=== PATIENT | female | born 1970 | race Caucasian/White ===

== ENCOUNTER 2022-09-22 06:00 | Day surgery (SDC) | payer OTHER, SELFPAY ==
[2022-09-19 12:02] VITALS: BMI 42.4
[2022-09-22] VITALS (8 sets, daily range): BP systolic 133–155; BP diastolic 78–94; PULSE 77–86; RESP 10–22; TEMP 35.9–36.7; O2SAT 94–98; BMI 42.4
--- NOTE | 2022-09-22 | DI.RAD.S_ITS ---
PROCEDURE: XR KUB INDICATIONS: Right renal calculi TECHNIQUE: One view of the abdomen acquired. COMPARISON: [facility], CT, CT KUB, 08/30/2022, 17:26. FINDINGS: Surgical changes and devices: Multiple surgical clips. L5-S1 pedicle screw fixation. Bowel: Bowel gas pattern is normal. Soft tissues: At least 2 small nonobstructing right kidney stones seen. (3 kidney stones are seen on recent CT KUB. The other stone may be obscured by bowel.) No suspicious abdominal calcifications. Visualized solid organ contours appear normal in size. Bones: No suspicious bony lesions. IMPRESSION: At least 2 nonobstructing right kidney stones appears similar. The 3rd small right kidney stone seen on recent CT is felt to be obscured by bowel. Dictated by: You Willoughby M.D. on 09/22/2022 at 8:23 Approved by: You Willoughby M.D. on 09/22/2022 at 8:27
--- NOTE | 2022-09-22 | DI.RAD.S_ITS ---
PROCEDURE: XR ABDOMEN 1V INDICATIONS: intra-op COMPARISON: [facility], CT, CT KUB, 08/30/2022, 17:26. [facility], CR, XR KUB, 09/22/2022, 6:43. FINDINGS: Intraoperative fluoroscopy images demonstrate placement of right ureteral stent. Partial below the addition of lower lumbar spine fusion. IMPRESSION: Placement of right ureteral stent. Dictated by: Elvi Cardona M.D. on 09/22/2022 at 15:32 Approved by: Elvi Cardona M.D. on 09/22/2022 at 15:33
--- NOTE | 2022-09-22 07:20 | PM.PREOP ---
Pre-operative Note COVID-19 Criteria for continued procedure: Expected advancement of disease process, Possibility delay results in more complex future surgery or treatment, Continuing or worsening of significant or severe pain, Delay expected to result in less-positive ultimate med/surg outcome and Non-surgical alternatives not available or appropriate per current SOC Interval Note History & Physical reviewed/Exam performed by Physician: Yes Changes to H&P: No
[2022-09-22] MEDS: VANCOMYCIN 1,000 MG/200 ML PIGGYBACK 200 MG IV (07:24)
[2022-09-22] MEDS: LACTATED RINGERS 1,000 ML 42 ML IV ×2 (07:26→09:26)
[2022-09-22] MEDS: GENTAMICIN 160 MG in SODIUM CHLORIDE 0.9% 100 ML 104 MG IV (07:47)
[2022-09-22] MEDS: IOPAMIDOL 50 ML VIAL INJ (08:15)
--- NOTE | 2022-09-22 08:38 | SUR.OPER ---
Lithotomy on padded OR bed, head on pillow, arms secured on padded arm boards at <90 degrees abduction. Legs secured in padded yellow fins stirrups.
[2022-09-22 09:01] LABS: Appearance Urine UA CLEAR; Bilirubin Urine UA NEGATIVE (NEGATIVE); Color Urine UA YELLOW; Glucose Urine UA NEGATIVE (Negative); Ketones Urine UA NEGATIVE (NEGATIVE); Leukocyte Esterase Urine UA NEGATIVE (NEGATIVE); Nitrite Urine UA NEGATIVE (Negative); Occult Blood Urine UA 3+ (Negative); Protein Urine UA TRACE (Negative); Specific Gravity Urine UA 1.025 (1.000-1.035); Urobilinogen Urine UA 0.2 E.U./dL (0.2); pH Urine UA 5.5 (4.5-8.0)
[2022-09-22 09:05] LABS: Bacteria Urine None Seen; Culture Indicated Urine Cult Not Indicated; RBC Urine 5-10/HPF (0-5/HPF); Squamous Epithelial Cell Urine 0-1 /HPF (0-5/HPF); WBC Urine None Seen (0-5/HPF)
[2022-09-22] MEDS: fentaNYL 100 MCG/2 ML INJ IV ×2 (09:20→09:29)
[2022-09-22] MEDS: ONDANSETRON 4 MG/2 ML INJ IV (09:22)
--- NOTE | 2022-09-22 09:25 | P.OP_ITS ---
Operative Date/Time/Diagnoses Date of procedure: 09/22/22 Time of procedure: 09:25 Pre-op diagnosis: 1. Right renal calculi. 2. Gross hematuria. 3. Chronic anticoagulation. 4. Right renal colic. Post-op diagnosis: same Procedure & Clinicians Procedure: 1. Cystoscopy/right ureteroscopic laser lithotripsy. 2. Cystoscopy/right retrograde pyelogram. 3. Cystoscopy/placement right ureteral stent (8 [place] by 22-32 cm multi- length). Same procedure as scheduled: Yes Indications: 1. Right renal calculi. 2. Gross hematuria. 3. Chronic anticoagulation. 4. Right renal colic. Click Yes if Unassisted: Yes Anesthesia Type: General Operative Notes Findings: Index spiculated calculi lying in right lower pole major calyx. Closure Type: not applicable Specimen(s): none sent Applied: other (Eight [place] by 22-32 cm multi-length stent.) Estimated Blood Loss (mL): 2 Blood products transfused: none Procedure in detail: Patient was positioned in supine administered general anesthesia. She was then repositioned in semi lithotomy in the lower abdomen, genitalia, and groin were prepped and draped in sterile fashion. Twenty-two [place] nichols endoscope was then passed the lower urinary tract with the findings as described above. A high-resolution 0.35 guidewire was then advanced in the working channel into the right ureteral orifice and then advanced proximally under direct fluoroscopic guidance. The panendoscope was then backloaded off hybrid guidewire. Now a dual-lumen ureteral access sheath was advanced over this wire under fluoroscopic guidance. A retrograde pyelogram was then performed to delineate intrarenal anatomy. A 2nd 0.35 hybrid guidewire was then advanced through the accessory lumen of the dual-lumen ureteral access sheath under fluoroscopic guidance. The dual-lumen ureteral access sheath was then backloaded off both wires. One wire was secured to the surgical drape. Over the other wire flexible ureteral scope was advanced under directed fluoroscopic guidance. A 100 micron laser fiber was not available, so a 200 micron laser fiber was selected. All operating room personnel and patient were fitted with laser safety eyewear. At maximal deflection of the scope 2 of the 3 stones were accessible and laser lithotripsy was commenced with excellent resultant fragmentation. The 3rd stone late at the very lower minor calyx. In order to reach the calculus the patient was positioned in extreme left airplane and Trendelenburg. The stone was then accessible and laser lithotripsy was then commenced again with excellent resultant fragmentation. The flexible ureteral scope was then removed. Nichols endoscope was then front loaded on the safety hybrid guidewire. An 8 [place] by 22-32 cm multi-length stent was then selected the hybrid guidewire under direct and fluoroscopic guidance. A RETRIEVAL LINE WAS LEFT ATTACHED. The bladder was then drained completely and nichols endoscope was removed. The patient was repositioned in supine, was awakened, then transferred to a rclimax for transport to PACU. Complications: none Post-operative Condition: stable Disposition: PACU Plan for aftercare: Discharge home.
[2022-09-22] MEDS: OXYCODONE/ACETAMINOPHEN 5/325 TABLET 1 TAB PO (09:38)
--- NOTE | 2022-09-22 09:54 | SUR.PHASEI ---
Patient expressed desire to void on the toilet. Awake and alert. Discharged from PACU.
--- NOTE | 2022-09-22 10:36 | SUR.PHASEII ---
1030 Pt discharged to home. Pt to restart Xarelto /Lovenox per Dr Porras instructions.
[2022-09-27 11:19] LABS: Stone Analysis Source NOT PROVIDED
[2022-09-27 11:47] LABS: Ca oxalate dihydrate 50 % (.); Hydroxyapatite 50 % (.); Size <1 mm (.)
== END 2022-09-22 10:30 | disposition home or self-care (01) ==
PROVIDERS: PCP Physician Assistant; Referring Provider Specialist; Visit Provider Specialist
PROC: 0TF68ZZ Fragmentation in Right Ureter, Via Natural or Artificial Opening Endoscopic (ICD-10-PCS; CPT 52353; principal; 2022-09-22 07:45)
DX: N20.0 Calculus of kidney (principal)
CPT/HCPCS: 52356; 74018; 76000; 81001; 82365; C1771; J1885; J2405; J2704; J3010

== ENCOUNTER → 2022-09-29 10:53 | Outpatient (CLI) | payer OTHER, SELFPAY ==
--- NOTE | 2022-09-29 10:54 | DI.RAD.S_ITS ---
PROCEDURE: XR KUB INDICATIONS: Uretal stent TECHNIQUE: One view of the abdomen acquired. COMPARISON: [facility], CR, XR KUB, 09/22/2022, 6:43. FINDINGS: Surgical changes and devices: Right double-J ureteral stent, lumbosacral fusion hardware, abdominal and pelvic clips. Bowel: Bowel gas pattern is normal. Soft tissues: No suspicious abdominal calcifications. Visualized solid organ contours appear normal in size. Bones: No suspicious bony lesions. IMPRESSION: Expected location double-J ureteral stent. No evidence acute abdominal process. Dictated by: Kishor Garibay M.D. on 09/29/2022 at 11:51 Approved by: Kishor Garibay M.D. on 09/29/2022 at 11:52
== END ==
PROVIDERS: PCP Physician Assistant; Referring Provider Specialist; Visit Provider Specialist
DX: N20.0 Calculus of kidney (principal); Z96.0 Presence of urogenital implants; Z98.1 Arthrodesis status; Z87.442 Personal history of urinary calculi
CPT/HCPCS: 74018

== ENCOUNTER → 2022-10-02 09:13 | Day surgery (SDC) | payer OTHER, SELFPAY ==
[2022-10-02 08:08] VITALS: BMI 42.4
[2022-10-02 10:01] VITALS: BMI 42.4
--- NOTE | 2022-10-02 10:04 | PM.PREOP ---
Pre-operative Note COVID-19 Criteria for continued procedure: Possibility delay results in more complex future surgery or treatment, Continuing or worsening of significant or severe pain, Delay expected to result in less-positive ultimate med/surg outcome and Non-surgical alternatives not available or appropriate per current SOC Interval Note History & Physical reviewed/Exam performed by Physician: Yes Changes to H&P: No H&P completed within 30 days and has changed as indicated here:: KUB 09/29/2022, demonstrates appropriately positioned right ureteral stent.
[2022-10-02 10:09] VITALS: BP 145/83; PULSE 96; RESP 18; TEMP 37.8; O2SAT 97
--- NOTE | 2022-10-02 10:14 | SUR.OPER ---
Lithotomy on padded OR bed, head on pillow, arms secured on padded arm boards at <90 degrees abduction. Legs secured in padded yellow fins stirrups.
[2022-10-02] MEDS: LACTATED RINGERS 1,000 ML 42 ML IV (10:15)
--- NOTE | 2022-10-02 10:21 | PM.OP.1 ---
Operative Date/Time/Diagnoses Date of procedure: 10/02/22 Time of procedure: 10:45 Pre-op diagnosis: 1. Retained right ureteral stent. 2. History of recurrent nephrolithiasis. Post-op diagnosis: same Procedure & Clinicians Procedure: 1. Removal of right retained ureteral stent under sedation. Same procedure as scheduled: Yes Indications: 1. Retained right ureteral stent. Surgeon: Manuel Porras Click Yes if Unassisted: Yes Anesthesia Type: Sedation Operative Notes Findings: 1. Perineal and genital atrophic hair loss. 2. Normal appearing urethral meatus with retrieval line exiting unchanged verses previous exam. Closure Type: not applicable Specimen(s): other (Catheterized urine for urinalysis and reflex culture.) Estimated Blood Loss (mL): 0 Blood products transfused: none Procedure in detail: The patient was positioned supine and was provided conscious sedation. She was then repositioned in semi lithotomy and the lower abdomen, genitalia, and groin were then prepped and draped in sterile fashion. The retained right ureteral stent was removed uneventfully via the retrieval line. A straight red rubber catheter was then passed the lower urinary tract and a sample obtained for submission to laboratory for reflex culture. The patient was then repositioned in supine, was then transferred to [facility] and transferred to recovery in stable condition. Complications: none Post-operative Condition: stable Disposition: PACU Plan for aftercare: Discharge home.
--- NOTE | 2022-10-02 10:22 | PM.HP.1 ---
History of Present Illness History of Present Illness Date Patient Seen: 10/02/22 Time Patient Seen: 10:00 Chief complaint: Cysto Narrative: The patient is a 52-year-old woman with history of recurrent right nephrolithiasis presenting today for removal retained right ureteral stent. She is status post uncomplicated right intrarenal laser lithotripsy of 3 stones and placement of right ureteral stent on 09/22/2022. A retrieval line was left attached. Attempts to remove the stent via they retrieval line in office on 09/29/2022, were unsuccessful due to patient's intolerance and lack of ability to cooperatively relax her pelvic floor. KUB 09/29/2022 demonstrates intact positioning of the right ureteral stent. Patient History Medical History (Updated 10/02/22 @ 10:25 by Manuel Porras MD) Bipolar disorder Calculus of right kidney Chronic low back pain Diabetes Disc displacement, lumbar DVT (deep venous thrombosis) Factor V Leiden Fibromyositis GERD (gastroesophageal reflux disease) Gross hematuria History of depression History of kidney stones History of nephrolithiasis HLD (hyperlipidemia) HTN (hypertension) Hx of migraine headaches Hx of nephrolithotomy with removal of calculi IBS (irritable bowel syndrome) Migraines Sepsis (12/2021) Surgical History (Updated 10/02/22 @ 08:14 by Kelly Meza RN) History of back surgery History of hysterectomy (1997) History of lumbar fusion (2007) Hx of cervical discectomy (04/13/17) Hx of cholecystectomy Hx of cystoscopy (12/27/21) Hx of cystoscopy (09/22/22) Hx of laser iridotomy Hx of neck surgery Hx of tonsillectomy 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) Family & Social History Family History Mother Cancer Hypertension Migraines Urinary tract infection Kidney stones Brother Cancer Hypertension Inflammatory bowel disease Social History: household members spouse Tobacco & Substance use: Smoking Status Never smoker alcohol intake never Substance Use Type does not use Meds Home Medications and Allergies Home Medications Medication Instructions Recorded Confirmed Type lamotrigine 100 mg tablet 100 mg PO BID ##0 04/12/17 10/02/22 History (Lamictal) cholecalciferol (vitamin D3) 50 50 mcg PO DAILY 08/31/22 10/02/22 History mcg (2,000 unit) capsule estradiol 0.01% (0.1 mg/gram) 1 g vaginal 2XW 08/31/22 10/02/22 History vaginal cream furosemide 20 mg tablet 20 mg PO DAILY 08/31/22 10/02/22 History multivitamin 1 tab PO DAILY 08/31/22 10/02/22 History rivaroxaban 2.5 mg tablet (Xarelto) 2.5 mg PO BID 08/31/22 10/02/22 History sumatriptan succinate 25 mg tablet 25 mg PO ONCE 08/31/22 10/02/22 History enoxaparin 40 mg/0.4 mL 40 mg (0.4 mL) SUBCUT Q12H #4 mL 09/07/22 10/02/22 Rx subcutaneous syringe (Lovenox) oxycodone 5 mg tablet 5 mg PO Q4H PRN pain #20 tabs 09/07/22 10/02/22 Rx bupropion HCl 150 mg 24 hr tablet, 150 mg PO DAILY 09/22/22 10/02/22 History extended release (Wellbutrin XL) oxycodone 5 mg tablet 5 mg PO Q4H PRN pain #20 tabs 09/25/22 10/02/22 Rx Allergies Allergy/AdvReac Type Severity Reaction Status Date / Time amoxicillin [AMOXICILLIN] Allergy Severe HIVES Verified 10/02/22 09:54 Sulfa (Sulfonamide Allergy Severe HIVES Verified 10/02/22 09:54 Antibiotics) [SULFA (SULFONAMIDE ANTIBIOTICS)] Review of Systems Review of Systems ROS: Yes All systems reviewed with the patient and are negative except as otherwise documented Exam Vital Signs (past 8 hours): - 10/02/22 10:09 Temperature 100.1 F H Pulse Rate 96 H Respiratory Rate 18 Blood Pressure 145/83 H Pulse Oximetry 97 Oxygen Delivery Method Room Air Oxygen Delivery Method Room Air Narrative Exam Narrative: She is a well-developed, over nourished female in no current distress. Head/neck-sclera clear pupils are equal and round bilaterally. Chest-equal and unlabored expansion bilaterally. Heart-normal sinus rhythm. Assessment & Plan Assessment and plan (1) Retained ureteral stent: Status: Acute (2) History of nephrolithiasis: Status: Acute Plan 1. To operating room today for retained right ureteral stent removal via retrieval line or endoscopically under sedation. Time Spent With Patient Critical Care time: I spent a total of [] minutes of critical care time on this patient's care today; this time is exclusive of procedural time.
[2022-10-02 10:52] VITALS: BP 125/62; PULSE 90; RESP 16; TEMP 36.1; O2SAT 95
[2022-10-02 10:57] VITALS: BP 113/66; PULSE 92; RESP 16; TEMP 36.9; O2SAT 94
[2022-10-02 11:08] VITALS: BP 122/72; PULSE 60; RESP 16; TEMP 36.3; O2SAT 98
[2022-10-02 11:16] LABS: Appearance Urine UA CLOUDY; Bilirubin Urine UA 1+ (NEGATIVE); Color Urine UA BROWN; Glucose Urine UA NEGATIVE (Negative); Ketones Urine UA NEGATIVE (NEGATIVE); Leukocyte Esterase Urine UA 2+ (NEGATIVE); Nitrite Urine UA POSITIVE (Negative); Occult Blood Urine UA 3+ (Negative); Protein Urine UA 2+ (Negative); Specific Gravity Urine UA 1.025 (1.000-1.035)
[2022-10-02 11:36] LABS: Ictotest Urine Negative (Negative); RBC Urine >100/HPF (0-5/HPF); WBC Urine >100/HPF (0-5/HPF)
[2022-10-02 11:37] LABS: Bacteria Urine Many (>30); Culture Indicated Urine Specimen Cultured
== END | disposition home or self-care (01) ==
PROVIDERS: PCP Physician Assistant; Referring Provider Specialist; Visit Provider Specialist
PROC: 0TJB8ZZ Inspection of Bladder, Via Natural or Artificial Opening Endoscopic (ICD-10-PCS; CPT 52000; principal; 2022-10-02 10:30)
DX: Z46.6 Encounter for fitting and adjustment of urinary device (principal)
CPT/HCPCS: 50386; 81001; 87077; 87086; 87186; J0744; J1100; J2250; J2405; J2704; J3010

== ENCOUNTER 2022-10-06 09:39 | Emergency (ER) | payer OTHER, SELFPAY ==
[2022-10-06 09:48] VITALS: BP 128/58; PULSE 90; RESP 16; TEMP 37.3; O2SAT 94; BMI 44.2
[2022-10-06 10:27] LABS: RBC Urine 10-30/HPF (0-5/HPF)
[2022-10-06 10:28] LABS: Amorphous Sediment Urine 1+; Bacteria Urine Moderate (10-30); Culture Indicated Urine Specimen Cultured; Hyaline Casts Urine 0-1/LPF; WBC Urine 30-100/HPF (0-5/HPF)
--- NOTE | 2022-10-06 11:04 | ED.FEMALEGU ---
HPI - Female Genitourinary General Chief complaint: Urogenital-Female Stated complaint: sent by Urology infection not getting better Time Seen by Provider: 10/06/22 11:01 Source: patient Mode of arrival: Wheelchair History of Present Illness HPI Narrative: Patient is a 52-year-old female history of nephrolithiasis with ureteral stents along with UTI and sepsis. Presents today with painful frequent urination. She had a urethral stent removed 5 days ago. She had to undergo removal with sedation surgically. She was given 1 dose of IV antibiotics due to her past history. Previously she is had stents removed in gone in to sepsis. She does not have any fever she is some mild flank pain no abdominal pain nausea vomiting. She is no chest pain or other symptoms. Related Data Home Medications Medication Instructions Recorded Confirmed lamotrigine 100 mg tablet 100 mg PO BID ##0 04/12/17 10/02/22 (Lamictal) cholecalciferol (vitamin D3) 50 50 mcg PO DAILY 08/31/22 10/02/22 mcg (2,000 unit) capsule estradiol 0.01% (0.1 mg/gram) 1 g vaginal 2XW 08/31/22 10/02/22 vaginal cream furosemide 20 mg tablet 20 mg PO DAILY 08/31/22 10/02/22 multivitamin 1 tab PO DAILY 08/31/22 10/02/22 rivaroxaban 2.5 mg tablet (Xarelto) 2.5 mg PO BID 08/31/22 10/02/22 sumatriptan succinate 25 mg tablet 25 mg PO ONCE 08/31/22 10/02/22 bupropion HCl 150 mg 24 hr tablet, 150 mg PO DAILY 09/22/22 10/02/22 extended release (Wellbutrin XL) Previous Rx's Medication Instructions Recorded enoxaparin 40 mg/0.4 mL 40 mg (0.4 mL) SUBCUT Q12H #4 mL 09/07/22 subcutaneous syringe (Lovenox) oxycodone 5 mg tablet 5 mg PO Q4H PRN pain #20 tabs 09/07/22 oxycodone 5 mg tablet 5 mg PO Q4H PRN pain #20 tabs 09/25/22 cefdinir 300 mg capsule 300 mg PO BID #20 caps 10/06/22 Allergies Allergy/AdvReac Type Severity Reaction Status Date / Time amoxicillin [AMOXICILLIN] Allergy Severe HIVES Verified 10/06/22 09:48 Sulfa (Sulfonamide Allergy Severe HIVES Verified 10/06/22 09:48 Antibiotics) [SULFA (SULFONAMIDE ANTIBIOTICS)] Review of Systems Review of Systems ROS Unobtainable: All systems reviewed & are unremarkable except as noted in HPI and below Patient History Medical History Bipolar disorder Calculus of right kidney Chronic low back pain Diabetes Disc displacement, lumbar DVT (deep venous thrombosis) Factor V Leiden Fibromyositis GERD (gastroesophageal reflux disease) Gross hematuria History of depression History of kidney stones History of nephrolithiasis HLD (hyperlipidemia) HTN (hypertension) Hx of migraine headaches Hx of nephrolithotomy with removal of calculi IBS (irritable bowel syndrome) Migraines Sepsis (12/2021) Surgical History History of back surgery History of hysterectomy (1997) History of lumbar fusion (2007) Hx of cervical discectomy (04/13/17) Hx of cholecystectomy Hx of cystoscopy (12/27/21) Hx of cystoscopy (09/22/22) Hx of laser iridotomy Hx of neck surgery Hx of tonsillectomy 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) Family History Mother Cancer Hypertension Migraines Urinary tract infection Kidney stones Brother Cancer Hypertension Inflammatory bowel disease alcohol intake frequency: holidays/special occasions only Substance Use Type: does not use Exam Initial Vital Signs Initial Vital Signs: Vital Signs Temperature 99.1 F 10/06/22 09:48 Pulse Rate 90 10/06/22 09:48 Respiratory Rate 16 10/06/22 09:48 Blood Pressure 128/58 L 10/06/22 09:48 Pulse Oximetry 94 10/06/22 09:48 Oxygen Delivery Method Room Air 10/06/22 09:48 GENERAL: Alert pleasant 52-year-old female HEENT: Head atraumatic,EOMI, pupils reactive, face symmetric, moist mucous membranes CARDIOVASCULAR: Regular rate and rhythm without murmurs, rubs or gallops. RESPIRATORY: Breath sounds equal bilaterally, no wheezes rales or rhonchi. ABDOMEN: Soft, nontender. Normoactive bowel sounds all 4 quadrants. No guarding or rebound. : No CVA tenderness EXTREMITIES: Normal range of motion, no clubbing or edema. Neurovascularly intact NEUROLOGICAL: Alert and oriented x4.Normal gait and speech. SKIN: Warm, dry, no laceration, no petechiae, no rashes or lesions. Course Orders Ordered: Discontinued Medications Ceftriaxone Sodium 1,000 mg/ (Sodium Chloride) 100 mls @ 200 mls/hr IV NOW ONE Stop: 10/06/22 12:39 Last Admin: 10/06/22 13:16 Dose: 200 mls/hr Documented By: SB Vital Signs Vital signs: Vital Signs - 8 hr 10/06/22 09:48 Temperature 99.1 F Pulse Rate 90 Respiratory Rate 16 Blood Pressure 128/58 L Pulse Oximetry 94 Oxygen Delivery Method Room Air MDM - Female Genitourinary Lab Data 10/06/22 11:55 10/06/22 11:55 Labs: Lab Results 10/06/22 10/06/22 10/06/22 Range/Units 10:00 11:55 11:55 WBC 10.4 (4.5-11.0) X10^3/uL RBC 3.39 L (4.0-5.2) X10^6/uL Hgb 9.9 L (12.0-16.0) g/dL Hct 29.8 L (36-46) % MCV 87.9 (80-100) fL MCH 29.3 (26-34) PG MCHC 33.3 (30-36) % RDW 14.6 (11.6-14.8) % Plt Count 313 (150-400) X10^3/uL Neut % (Auto) 70.9 (50-75) % Lymph % (Auto) 15.3 L (25-40) % Maury % (Auto) 12.3 (3-14) % Eos % (Auto) 0.9 L (2-4) % Baso % (Auto) 0.6 (0-2) % Neut # (Auto) 7300 H (7967-6520) /uL Lymph # (Auto) 1600 (4573-7053) /uL Maury # (Auto) 1300 H (0-900) /uL Eos # (Auto) 100 (0-450) /uL Baso # (Auto) 100 (0-100) /uL Sodium 137 (137-145) mmol/L Potassium 3.1 L (3.4-5.1) mmol/L Chloride 102 (98-107) mmol/L Carbon Dioxide 25 (22-32) mmol/L BUN 17 (7-17) mg/dL Creatinine 0.92 (0.52-1.04) mg/dL Estimated GFR > 60 (>60) mL/min BUN/Creatinine Ratio 18.5 (6-22) Glucose 108 H (70-100) mg/dL Lactate (0.7-2.1) mmol/L Calcium 8.8 (8.4-10.2) mg/dL Total Bilirubin 0.4 (0.2-1.3) mg/dL AST 28 (14-36) IU/L ALT 22 (<35) IU/L Alkaline Phosphatase 118 (38-126) U/L Total Protein 7.8 (6.3-8.2) g/dL Albumin 3.7 (3.5-5.0) g/dL Globulin 4.1 (1.7-4.1) g/dL Albumin/Globulin Ratio 0.9 L (1.0-2.8) Procalcitonin (<0.5) ng/mL Urine RBC 10-30/hpf H (0-5/HPF) Urine WBC 30-100/hpf H (0-5/HPF) Amorphous Sediment 1+ Urine Bacteria Moderate (10-30) H (None) Hyaline Casts 0-1/lpf (None) Ur Culture Indicated? Specimen cultured A. baumannii (PCR) (Not Detect) Dulce albicans (PCR) (Not Detect) C. glabrata (PCR) (Not Detect) C. krusei (PCR) (Not Detect) C. parapsilosis (PCR) (Not Detect) C. tropicalis (PCR) (Not Detect) Enterobacteriac sp PCR (Not Detect) E. cloacae complex PCR (Not Detect) Enterococcus sp PCR (Not Detect) E. coli (PCR) (Not Detect) H. influenzae (PCR) (Not Detect) Klebsiella oxytoca PCR (Not Detect) Klebsiella pneumoniae (Not Detect) List. monocytogenes PCR (Not Detect) N. meningitidis (PCR) (Not Detect) Proteus species (PCR) (Not Detect) Serratia marcescens PCR (Not Detect) Staphylococcus sp PCR (Not Detect) Staph aureus (PCR) (Not Detect) mecA-Methicil Res Gene Streptococcus sp PCR (Not Detect) Group A Strep (PCR) (Not Detect) Strep agalactiae (PCR) (Not Detect) Strep pneumoniae (PCR) (Not Detect) P. aeruginosa (PCR) (Not Detect) KPC-Carbap Res Gene PCR (Not Detect) 10/06/22 10/06/22 10/07/22 Range/Units 11:55 11:55 02:02 WBC (4.5-11.0) X10^3/uL RBC (4.0-5.2) X10^6/uL Hgb (12.0-16.0) g/dL Hct (36-46) % MCV (80-100) fL MCH (26-34) PG MCHC (30-36) % RDW (11.6-14.8) % Plt Count (150-400) X10^3/uL Neut % (Auto) (50-75) % Lymph % (Auto) (25-40) % Maury % (Auto) (3-14) % Eos % (Auto) (2-4) % Baso % (Auto) (0-2) % Neut # (Auto) (1820-0968) /uL Lymph # (Auto) (0501-2555) /uL Maury # (Auto) (0-900) /uL Eos # (Auto) (0-450) /uL Baso # (Auto) (0-100) /uL Sodium (137-145) mmol/L Potassium (3.4-5.1) mmol/L Chloride (98-107) mmol/L Carbon Dioxide (22-32) mmol/L BUN (7-17) mg/dL Creatinine (0.52-1.04) mg/dL Estimated GFR (>60) mL/min BUN/Creatinine Ratio (6-22) Glucose (70-100) mg/dL Lactate 0.9 (0.7-2.1) mmol/L Calcium (8.4-10.2) mg/dL Total Bilirubin (0.2-1.3) mg/dL AST (14-36) IU/L ALT (<35) IU/L Alkaline Phosphatase (38-126) U/L Total Protein (6.3-8.2) g/dL Albumin (3.5-5.0) g/dL Globulin (1.7-4.1) g/dL Albumin/Globulin Ratio (1.0-2.8) Procalcitonin 82.7 H (<0.5) ng/mL Urine RBC (0-5/HPF) Urine WBC (0-5/HPF) Amorphous Sediment Urine Bacteria (None) Hyaline Casts (None) Ur Culture Indicated? A. baumannii (PCR) Not detected (Not Detect) Dulce albicans (PCR) Not detected (Not Detect) C. glabrata (PCR) Not detected (Not Detect) C. krusei (PCR) Not detected (Not Detect) C. parapsilosis (PCR) Not detected (Not Detect) C. tropicalis (PCR) Not detected (Not Detect) Enterobacteriac sp PCR Detected H (Not Detect) E. cloacae complex PCR Not detected (Not Detect) Enterococcus sp PCR Not detected (Not Detect) E. coli (PCR) Detected H (Not Detect) H. influenzae (PCR) Not detected (Not Detect) Klebsiella oxytoca PCR Not detected (Not Detect) Klebsiella pneumoniae Not detected (Not Detect) List. monocytogenes PCR Not detected (Not Detect) N. meningitidis (PCR) Not detected (Not Detect) Proteus species (PCR) Not detected (Not Detect) Serratia marcescens PCR Not detected (Not Detect) Staphylococcus sp PCR Not detected (Not Detect) Staph aureus (PCR) Not detected (Not Detect) mecA-Methicil Res Gene Not Reportable Streptococcus sp PCR Not detected (Not Detect) Group A Strep (PCR) Not detected (Not Detect) Strep agalactiae (PCR) Not detected (Not Detect) Strep pneumoniae (PCR) Not detected (Not Detect) P. aeruginosa (PCR) Not detected (Not Detect) KPC-Carbap Res Gene PCR Not detected (Not Detect) Urine Dip Bedside Urine Glucose Negative Bedside Urine Bilirubin - Negative Bedside Urine Ketone - Negative Urine Specific [place] 1.015 Bedside Urine Occult Blood +++ Bedside Urine pH 6.0 Bedside Urine Protein +/- 15 Bedside Urine Urobilinogen - Negative Bedside Urine Nitrite - Negative Bedside Urine Leukocytes + 70 Esterase MDM Narrative Medical decision making narrative: Patient is a 52-year-old female history of previous sepsis recent urologic procedure presents today with frequent urination. Leukocytes in her urine. She is afebrile normotensive without tachycardia no significant leukocytosis. Lactic acid is within normal limits however procalcitonin is significantly elevated at 82.7. Blood cultures are pending. She is given 1 dose of Rocephin here in the ED without any sort of interaction or allergic reaction. She does develop hives amoxicillin. He overall feels well and like to home. At this time I think this is reasonable no obvious signs sepsis. She is given a prescription. I did discuss with Dr. Porras he reports that she does have a history of sepsis especially after ureteral stents, he was a little worried about her but is updated on her results and agrees with an outpatient plan currently. Discharge Plan Departure Patient Disposition: Home Clinical Impression: UTI (urinary tract infection) Instructions: DI for Urinary Tract Infection (UTI) Activity Restrictions/Additional Instructions: *You have been diagnosed with UTI *What to do: At this time you do have a bladder infection probably from her procedure. Increase fluids. We may call you in the next 2-3 days if your blood cultures are. *Continue to take medications as directed Cefdinir 300 mg twice a day-> SENT TO [facility] *Follow up with your primary care provider in 2-3 days or call [phone] *Return to ER if you should have increasing pain fever confusion or any new, worsening or concerning symptoms Prescriptions: New cefdinir 300 mg capsule 300 mg PO BID Qty: 20 0RF No Action lamotrigine [Lamictal] 100 MG tablet 100 mg PO BID Qty: 0 enoxaparin [Lovenox] 40 mg/0.4 mL syringe 40 mg SUBCUT Q12H Qty: 4 0RF Rx Instructions: Administer every 12 hours beginning morning 09/18/2022 through morning 09/21/2022. oxycodone 5 mg tablet 5 mg PO Q4H PRN (Reason: pain) Qty: 20 0RF oxycodone 5 mg tablet 5 mg PO Q4H PRN (Reason: pain) Qty: 20 0RF bupropion HCl [Wellbutrin XL] 150 mg Tablet Extended Release 24 Hr 150 mg PO DAILY furosemide 20 mg tablet 20 mg PO DAILY sumatriptan succinate 25 mg tablet 25 mg PO ONCE cholecalciferol (vitamin D3) 50 mcg (2,000 unit) capsule 50 mcg PO DAILY estradiol 0.01 % (0.1 mg/gram) cream 1 g vaginal 2XW Xarelto 2.5 mg tablet 2.5 mg PO BID multivitamin Tablet 1 tab PO DAILY Referrals: Mary Cannon PA-C [Primary Care Provider] - Manuel Porras MD [Physician] - Stand Alone Forms: Patient Portal/API
[2022-10-06 12:01] LABS: Add Manual Diff / Slide Review NO; Basophils Absolute Auto 100 /uL (0-100); Basophils Percent Auto 0.6 % (0-2); Eosinophils Absolute Auto 100 /uL (0-450); Eosinophils Percent Auto 0.9 % (2-4); Hematocrit 29.8 % (36-46); Hemoglobin 9.9 g/dL (12.0-16.0); Lymphocytes Absolute Auto 1600 /uL (1100-4500); Lymphocytes Percent Auto 15.3 % (25-40); Mean Corpuscular HGB Conc 33.3 % (30-36); Mean Corpuscular Hemoglobin 29.3 PG (26-34); Mean Corpuscular Volume 87.9 fL (80-100); Monocytes Absolute Auto 1300 /uL (0-900); Monocytes Percent Auto 12.3 % (3-14); Neutrophils Absolute Auto 7300 /uL (1500-7000); Neutrophils Percent Auto 70.9 % (50-75); Platelet Count 313 X10^3/uL (150-400); Red Blood Cell Count 3.39 X10^6/uL (4.0-5.2); Red Cell Distribution Width 14.6 % (11.6-14.8); White Blood Cell Count 10.4 X10^3/uL (4.5-11.0)
[2022-10-06 12:14] LABS: Lactate (Lactic Acid) 0.9 mmol/L (0.7-2.1)
[2022-10-06 12:16] LABS: Alanine Aminotransferase 22 IU/L (<35); Albumin 3.7 g/dL (3.5-5.0); Albumin Globulin Ratio 0.9 (1.0-2.8); Alkaline Phosphatase 118 U/L (38-126); Aspartate Aminotransferase 28 IU/L (14-36); BUN Creatinine Ratio 18.5 (6-22); Bilirubin Total 0.4 mg/dL (0.2-1.3); Blood Urea Nitrogen 17 mg/dL (7-17); Calcium 8.8 mg/dL (8.4-10.2); Carbon Dioxide 25 mmol/L (22-32); Chloride 102 mmol/L (98-107); Estimated Glomerular Filt Rate > 60 mL/min (>60); Globulin 4.1 g/dL (1.7-4.1); Glucose 108 mg/dL (70-100); HEMOLYSIS < 15 (0-50); Potassium 3.1 mmol/L (3.4-5.1); Sodium 137 mmol/L (137-145); Total Protein 7.8 g/dL (6.3-8.2)
[2022-10-06 12:33] LABS: Procalcitonin 82.7 ng/mL (<0.5)
[2022-10-06] MEDS: cefTRIAXone 1,000 MG in SODIUM CHLORIDE 0.9% 100 ML 200 MG IV (13:16)
[2022-10-06 14:34] VITALS: BP 142/76; PULSE 75; O2SAT 97
[2022-10-07 03:25] LABS: Acinetobacter baumannii Not Detected (Not Detect); Enterobacteriaceae species Detected (Not Detect); Enterococcus species Not Detected (Not Detect); KPC (carbapenem-resist gene) Not Detected (Not Detect); Listeria monocytogenes Not Detected (Not Detect); Staphylococcus species Not Detected (Not Detect); Streptococcus agalactiae (Gr B Not Detected (Not Detect); Streptococcus pneumonia Not Detected (Not Detect); Streptococcus pyogenes (Gr A) Not Detected (Not Detect); Streptococcus species Not Detected (Not Detect)
[2022-10-07 03:26] LABS: Candida albicans Not Detected (Not Detect); Candida glabrata Not Detected (Not Detect); Candida krusei Not Detected (Not Detect); Candida parapsilosis Not Detected (Not Detect); Candida tropicalis Not Detected (Not Detect); E. coli Detected (Not Detect); Enterobacter cloacae complex Not Detected (Not Detect); Haemophilus influenzae Not Detected (Not Detect); Neisseria meningitidis Not Detected (Not Detect); Proteus species Not Detected (Not Detect); Pseudomonas aeruginosa Not Detected (Not Detect); Serratia marcescens Not Detected (Not Detect)
== END 2022-10-06 14:37 | disposition home or self-care (01) ==
PROVIDERS: Emergency Provider Emergency Medicine; PCP Physician Assistant
DX: N39.0 Urinary tract infection, site not specified (principal); B96.20 Unspecified Escherichia coli [E. coli] as the cause of diseases classified elsewhere
CPT/HCPCS: 36415; 80053; 81003; 81015; 83605; 84145; 85025; 87040; 87077; 87086; 87150; 87186; 96365; 99284; J0696

== ENCOUNTER 2022-10-08 07:06 | Emergency (ER) | payer OTHER, SELFPAY ==
[2022-10-08 07:30] VITALS: BP 133/60; PULSE 73; PULSE 77; RESP 18; RESP 20; TEMP 37.2; O2SAT 96; BMI 43.9
[2022-10-08 07:31] VITALS: BP 133/60; PULSE 74; RESP 19; O2SAT 96
[2022-10-08 07:54] LABS: Appearance Urine UA CLEAR; Bilirubin Urine UA NEGATIVE (NEGATIVE); Color Urine UA YELLOW; Glucose Urine UA NEGATIVE (Negative); Ketones Urine UA NEGATIVE (NEGATIVE); Leukocyte Esterase Urine UA 1+ (NEGATIVE); Nitrite Urine UA NEGATIVE (Negative); Occult Blood Urine UA NEGATIVE (Negative); Protein Urine UA 1+ (Negative); Specific Gravity Urine UA 1.015 (1.000-1.035); Urobilinogen Urine UA 0.2 E.U./dL (0.2)
[2022-10-08 07:57] LABS: pH Urine UA 6.5 (4.5-8.0)
[2022-10-08 08:00] VITALS: BP 130/94; PULSE 68; RESP 20; O2SAT 96
[2022-10-08 08:00] LABS: Amorphous Sediment Urine 1+; Bacteria Urine Moderate (10-30); Culture Indicated Urine Specimen Cultured; RBC Urine None Seen (0-5/HPF); Squamous Epithelial Cell Urine 5-10 /HPF (0-5/HPF); WBC Urine 30-100/HPF (0-5/HPF)
[2022-10-08 08:07] LABS: Add Manual Diff / Slide Review NO; Basophils Absolute Auto 0 /uL (0-100); Basophils Percent Auto 0.4 % (0-2); Eosinophils Absolute Auto 100 /uL (0-450); Eosinophils Percent Auto 1.4 % (2-4); Hematocrit 31.5 % (36-46); Hemoglobin 10.3 g/dL (12.0-16.0); Lymphocytes Absolute Auto 2500 /uL (1100-4500); Mean Corpuscular HGB Conc 32.8 % (30-36); Mean Corpuscular Hemoglobin 28.7 PG (26-34); Mean Corpuscular Volume 87.6 fL (80-100); Monocytes Absolute Auto 1500 /uL (0-900); Monocytes Percent Auto 14.5 % (3-14); Neutrophils Absolute Auto 5900 /uL (1500-7000); Neutrophils Percent Auto 58.7 % (50-75); Platelet Count 430 X10^3/uL (150-400); Red Cell Distribution Width 14.9 % (11.6-14.8)
[2022-10-08 08:27] LABS: Alanine Aminotransferase 23 IU/L (<35); Albumin 3.9 g/dL (3.5-5.0); Alkaline Phosphatase 130 U/L (38-126); Aspartate Aminotransferase 28 IU/L (14-36); BUN Creatinine Ratio 17.7 (6-22); Bilirubin Total 0.5 mg/dL (0.2-1.3); Blood Urea Nitrogen 14 mg/dL (7-17); Calcium 9.3 mg/dL (8.4-10.2); Carbon Dioxide 25 mmol/L (22-32); Chloride 103 mmol/L (98-107); Creatine Kinase 28 U/L (30-135); Estimated Glomerular Filt Rate > 60 mL/min (>60); Globulin 4.5 g/dL (1.7-4.1); Glucose 106 mg/dL (70-100); HEMOLYSIS < 15 (0-50); Potassium 2.8 mmol/L (3.4-5.1); Sodium 138 mmol/L (137-145); Total Protein 8.4 g/dL (6.3-8.2)
[2022-10-08 08:28] LABS: Albumin Globulin Ratio 0.9 (1.0-2.8); Lactate (Lactic Acid) 1.3 mmol/L (0.7-2.1); Lipase 89 U/L (23-300)
[2022-10-08 08:39] LABS: Troponin I < 0.012 ng/mL (0.01-0.034)
[2022-10-08 08:44] LABS: Procalcitonin 30.1 ng/mL (<0.5)
--- NOTE | 2022-10-08 08:52 | ED_ITS ---
HPI - Female Genitourinary General Chief complaint: Urogenital-Female Stated complaint: Following up results from sunday ffrom UTI Time Seen by Provider: 10/08/22 07:10 Source: patient Mode of arrival: Ambulatory History of Present Illness HPI Narrative: Patient is a 52-year-old female history of nephrolithiasis UTI and sepsis returning at my request. I saw and evaluated her in the emergency department on 10/06/2022 at that time she was stable without leukocytosis but did have a UTI and a procalcitonin of 82. The following day blood cultures became positive with Gram-negative bacilli. She was encouraged to return to the ED for repeat blood cultures. She still has some sweats she has some mild right-sided flank pain but overall feels like she is tolerating fluids and doing well. She has no more frequent urination she has been taking cefdinir she also received 1 dose of IV Rocephin on the . Related Data Home Medications Medication Instructions Recorded Confirmed lamotrigine 100 mg tablet 100 mg PO BID ##0 04/12/17 10/02/22 (Lamictal) cholecalciferol (vitamin D3) 50 50 mcg PO DAILY 08/31/22 10/02/22 mcg (2,000 unit) capsule estradiol 0.01% (0.1 mg/gram) 1 g vaginal 2XW 08/31/22 10/02/22 vaginal cream furosemide 20 mg tablet 20 mg PO DAILY 08/31/22 10/02/22 multivitamin 1 tab PO DAILY 08/31/22 10/02/22 rivaroxaban 2.5 mg tablet (Xarelto) 2.5 mg PO BID 08/31/22 10/02/22 sumatriptan succinate 25 mg tablet 25 mg PO ONCE 08/31/22 10/02/22 bupropion HCl 150 mg 24 hr tablet, 150 mg PO DAILY 09/22/22 10/02/22 extended release (Wellbutrin XL) Previous Rx's Medication Instructions Recorded enoxaparin 40 mg/0.4 mL 40 mg (0.4 mL) SUBCUT Q12H #4 mL 09/07/22 subcutaneous syringe (Lovenox) oxycodone 5 mg tablet 5 mg PO Q4H PRN pain #20 tabs 09/07/22 oxycodone 5 mg tablet 5 mg PO Q4H PRN pain #20 tabs 09/25/22 cefdinir 300 mg capsule 300 mg PO BID #20 caps 10/06/22 Allergies Allergy/AdvReac Type Severity Reaction Status Date / Time amoxicillin [AMOXICILLIN] Allergy Severe HIVES Verified 10/06/22 09:48 Sulfa (Sulfonamide Allergy Severe HIVES Verified 10/06/22 09:48 Antibiotics) [SULFA (SULFONAMIDE ANTIBIOTICS)] Review of Systems Review of Systems ROS Unobtainable: All systems reviewed & are unremarkable except as noted in HPI and below Patient History Medical History Bipolar disorder Calculus of right kidney Chronic low back pain Diabetes Disc displacement, lumbar DVT (deep venous thrombosis) Factor V Leiden Fibromyositis GERD (gastroesophageal reflux disease) Gross hematuria History of depression History of kidney stones History of nephrolithiasis HLD (hyperlipidemia) HTN (hypertension) Hx of migraine headaches Hx of nephrolithotomy with removal of calculi IBS (irritable bowel syndrome) Migraines Sepsis (12/2021) Surgical History History of back surgery History of hysterectomy (1997) History of lumbar fusion (2007) Hx of cervical discectomy (04/13/17) Hx of cholecystectomy Hx of cystoscopy (12/27/21) Hx of cystoscopy (09/22/22) Hx of laser iridotomy Hx of neck surgery Hx of tonsillectomy 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) Family History Mother Cancer Hypertension Migraines Urinary tract infection Kidney stones Brother Cancer Hypertension Inflammatory bowel disease alcohol intake frequency: holidays/special occasions only Substance Use Type: does not use Exam Initial Vital Signs Initial Vital Signs: Vital Signs Temperature 98.9 F 10/08/22 07:30 Pulse Rate 73 10/08/22 07:30 Respiratory Rate 18 10/08/22 07:30 Blood Pressure 133/60 10/08/22 07:30 Pulse Oximetry 96 10/08/22 07:30 Oxygen Delivery Method Room Air 10/08/22 07:30 GENERAL: Alert pleasant 52-year-old female HEENT: Head atraumatic,EOMI, pupils reactive, face symmetric, moist mucous membranes CARDIOVASCULAR: Regular rate and rhythm without murmurs, rubs or gallops. RESPIRATORY: Breath sounds equal bilaterally, no wheezes rales or rhonchi. ABDOMEN: Soft, nontender. Normoactive bowel sounds all 4 quadrants. No guarding or rebound. : Mild right CVA tenderness EXTREMITIES: Normal range of motion, no clubbing or edema. Neurovascularly intact NEUROLOGICAL: Alert and oriented x4. SKIN: Warm, dry, no laceration, no petechiae, no rashes or lesions. Course Orders Ordered: Discontinued Medications Ceftriaxone Sodium 1,000 mg/ (Sodium Chloride) 100 mls @ 200 mls/hr IV NOW ONE Stop: 10/08/22 08:32 Last Infusion: 10/08/22 10:11 Dose: 0 mls/hr Documented By: Admin: 10/08/22 09:21 Dose: 200 mls/hr Documented By: LISA Ondansetron HCl (Ondansetron 4 Mg Odt) 4 mg PO NOW PRN PRN Reason: Nausea And Vomiting Ondansetron HCl (Ondansetron 4 Mg/2 Ml Inj) 4 mg IV NOW PRN PRN Reason: Nausea And Vomiting Potassium Chloride (Potassium Chloride 20 Meq Tab) 40 meq PO NOW ONE Stop: 10/08/22 08:53 Last Admin: 10/08/22 09:21 Dose: 40 meq Documented By: LISA Vital Signs Vital signs: Vital Signs - 8 hr 10/08/22 07:30 10/08/22 07:30 10/08/22 07:31 Temperature 98.9 F Pulse Rate 73 77 Respiratory Rate 18 20 Blood Pressure 133/60 133/60 Pulse Oximetry 96 96 Oxygen Delivery Method Room Air 10/08/22 07:31 10/08/22 08:00 10/08/22 08:00 Temperature Pulse Rate 74 68 Respiratory Rate 19 20 Blood Pressure 130/94 H Pulse Oximetry 96 96 Oxygen Delivery Method 10/08/22 09:20 10/08/22 09:30 10/08/22 10:00 Temperature Pulse Rate 87 74 81 Respiratory Rate 21 21 24 Blood Pressure 144/73 H Pulse Oximetry 96 Oxygen Delivery Method Room Air MDM - Female Genitourinary Lab Data 10/08/22 07:50 10/08/22 07:50 Labs: Lab Results 10/08/22 10/08/22 10/08/22 Range/Units 07:45 07:50 07:50 WBC 10.0 (4.5-11.0) X10^3/uL RBC 3.60 L (4.0-5.2) X10^6/uL Hgb 10.3 L (12.0-16.0) g/dL Hct 31.5 L (36-46) % MCV 87.6 (80-100) fL MCH 28.7 (26-34) PG MCHC 32.8 (30-36) % RDW 14.9 H (11.6-14.8) % Plt Count 430 H (150-400) X10^3/uL Neut % (Auto) 58.7 (50-75) % Lymph % (Auto) 25.0 (25-40) % [place] % (Auto) 14.5 H (3-14) % Eos % (Auto) 1.4 L (2-4) % Baso % (Auto) 0.4 (0-2) % Neut # (Auto) 5900 (3764-9821) /uL Lymph # (Auto) 2500 (0181-9826) /uL [place] # (Auto) 1500 H (0-900) /uL Eos # (Auto) 100 (0-450) /uL Baso # (Auto) 0 (0-100) /uL Sodium 138 (137-145) mmol/L Potassium 2.8 L (3.4-5.1) mmol/L Chloride 103 (98-107) mmol/L Carbon Dioxide 25 (22-32) mmol/L BUN 14 (7-17) mg/dL Creatinine 0.79 (0.52-1.04) mg/dL Estimated GFR > 60 (>60) mL/min BUN/Creatinine Ratio 17.7 (6-22) Glucose 106 H (70-100) mg/dL Lactate (0.7-2.1) mmol/L Calcium 9.3 (8.4-10.2) mg/dL Total Bilirubin 0.5 (0.2-1.3) mg/dL AST 28 (14-36) IU/L ALT 23 (<35) IU/L Alkaline Phosphatase 130 H (38-126) U/L Total Creatine Kinase 28 L (30-135) U/L CK-MB (CK-2) TNP CK-MB (CK-2) Rel Index TNP Troponin I < 0.012 (0.01-0.034) ng/mL Total Protein 8.4 H (6.3-8.2) g/dL Albumin 3.9 (3.5-5.0) g/dL Globulin 4.5 H (1.7-4.1) g/dL Albumin/Globulin Ratio 0.9 L (1.0-2.8) Lipase (23-300) U/L Procalcitonin 30.1 H (<0.5) ng/mL Urine Color Yellow Urine Appearance Clear Urine pH 6.5 (4.5-8.0) Ur Specific [place] 1.015 (1.000-1.035) Urine Protein 1+ H (Negative) Urine Glucose (UA) Negative (Negative) g/dL Urine Ketones Negative (NEGATIVE) Urine Occult Blood Negative (Negative) Urine Nitrate Negative (Negative) Urine Bilirubin Negative (NEGATIVE) Urine Urobilinogen 0.2 (0.2) E.U./dL Ur Leukocyte Esterase 1+ H (NEGATIVE) Urine RBC None seen (0-5/HPF) Urine WBC 30-100/hpf H (0-5/HPF) Ur Squamous Epith Cells 5-10 /hpf H (0-5/HPF) Amorphous Sediment 1+ Urine Bacteria Moderate (10-30) H (None) Ur Culture Indicated? Specimen cultured 10/08/22 10/08/22 Range/Units 07:50 07:50 WBC (4.5-11.0) X10^3/uL RBC (4.0-5.2) X10^6/uL Hgb (12.0-16.0) g/dL Hct (36-46) % MCV (80-100) fL MCH (26-34) PG MCHC (30-36) % RDW (11.6-14.8) % Plt Count (150-400) X10^3/uL Neut % (Auto) (50-75) % Lymph % (Auto) (25-40) % [place] % (Auto) (3-14) % Eos % (Auto) (2-4) % Baso % (Auto) (0-2) % Neut # (Auto) (2304-7730) /uL Lymph # (Auto) (3908-9413) /uL [place] # (Auto) (0-900) /uL Eos # (Auto) (0-450) /uL Baso # (Auto) (0-100) /uL Sodium (137-145) mmol/L Potassium (3.4-5.1) mmol/L Chloride (98-107) mmol/L Carbon Dioxide (22-32) mmol/L BUN (7-17) mg/dL Creatinine (0.52-1.04) mg/dL Estimated GFR (>60) mL/min BUN/Creatinine Ratio (6-22) Glucose (70-100) mg/dL Lactate 1.3 (0.7-2.1) mmol/L Calcium (8.4-10.2) mg/dL Total Bilirubin (0.2-1.3) mg/dL AST (14-36) IU/L ALT (<35) IU/L Alkaline Phosphatase (38-126) U/L Total Creatine Kinase (30-135) U/L CK-MB (CK-2) CK-MB (CK-2) Rel Index Troponin I (0.01-0.034) ng/mL Total Protein (6.3-8.2) g/dL Albumin (3.5-5.0) g/dL Globulin (1.7-4.1) g/dL Albumin/Globulin Ratio (1.0-2.8) Lipase 89 (23-300) U/L Procalcitonin (<0.5) ng/mL Urine Color Urine Appearance Urine pH (4.5-8.0) Ur Specific [place] (1.000-1.035) Urine Protein (Negative) Urine Glucose (UA) (Negative) g/dL Urine Ketones (NEGATIVE) Urine Occult Blood (Negative) Urine Nitrate (Negative) Urine Bilirubin (NEGATIVE) Urine Urobilinogen (0.2) E.U./dL Ur Leukocyte Esterase (NEGATIVE) Urine RBC (0-5/HPF) Urine WBC (0-5/HPF) Ur Squamous Epith Cells (0-5/HPF) Amorphous Sediment Urine Bacteria (None) Ur Culture Indicated? [facility] Narrative Medical decision making narrative: Patient 52-year-old female who has known gram-negative bacilli E coli presents today at my request. She has minimal symptoms blood work today is overall reassuring. She has no leukocytosis normal lactic acid procalcitonin his decreased from 80 to took 30. She actually is on appropriate antibiotic based on her urine culture from October 02. Patient appears well she does not want to stay in the hospital she has repeat blood cultures pending. Urine is still positive for leukocytes and blood he is given a 2nd dose of IV Rocephin here in the emergency department. Potassium is also noted to be low at 2.8 but no other sign of JEY or electrolyte abnormality. I feel comfortable sending patient home on her continued cefdinir it does seem to be working she is not in septic shock. Discharge Plan Departure Patient Disposition: Home Clinical Impression: Pyelonephritis, Bacteremia Instructions: DI for Kidney Infection Activity Restrictions/Additional Instructions: *You have been diagnosed with pyelonephritis with bacteremia *What to do: At this time your numbers have improved suspect that you still have some bacteria in your blood but it as though your antibiotic is working. We will call you in a couple days if blood cultures are again positive. If you should feel any worse at any time he must return to the emergency department. *Continue to take medications as directed Continue taking cefdinir 300 mg twice a day for 10 days *Follow up with your primary care provider in 2-3 days or call [phone] *Return to ER if you should have increasing weakness fevers pain tolerating fluids or any new, worsening or concerning symptoms Prescriptions: No Action lamotrigine [Lamictal] 100 MG tablet 100 mg PO BID Qty: 0 enoxaparin [Lovenox] 40 mg/0.4 mL syringe 40 mg SUBCUT Q12H Qty: 4 0RF Rx Instructions: Administer every 12 hours beginning morning 09/18/2022 through morning 09/21/2022. oxycodone 5 mg tablet 5 mg PO Q4H PRN (Reason: pain) Qty: 20 0RF oxycodone 5 mg tablet 5 mg PO Q4H PRN (Reason: pain) Qty: 20 0RF bupropion HCl [Wellbutrin XL] 150 mg Tablet Extended Release 24 Hr 150 mg PO DAILY cefdinir 300 mg capsule 300 mg PO BID Qty: 20 0RF furosemide 20 mg tablet 20 mg PO DAILY sumatriptan succinate 25 mg tablet 25 mg PO ONCE cholecalciferol (vitamin D3) 50 mcg (2,000 unit) capsule 50 mcg PO DAILY estradiol 0.01 % (0.1 mg/gram) cream 1 g vaginal 2XW Xarelto 2.5 mg tablet 2.5 mg PO BID multivitamin Tablet 1 tab PO DAILY Referrals: Mary Cannon PA-C [Primary Care Provider] - Stand Alone Forms: Patient Portal/API
[2022-10-08 09:20] VITALS: PULSE 87; RESP 21
[2022-10-08] MEDS: POTASSIUM CHLORIDE 20 MEQ TAB 40 MEQ PO (09:21)
[2022-10-08] MEDS: cefTRIAXone 1,000 MG in SODIUM CHLORIDE 0.9% 100 ML 200 MG IV (09:21)
[2022-10-08 09:30] VITALS: PULSE 74; RESP 21
[2022-10-08 10:00] VITALS: BP 144/73; PULSE 81; RESP 24; O2SAT 96
== END 2022-10-08 10:15 | disposition home or self-care (01) ==
PROVIDERS: Emergency Medicine; Emergency Provider Emergency Medicine; PCP Physician Assistant
DX: N12 Tubulo-interstitial nephritis, not specified as acute or chronic (principal); R78.81 Bacteremia
CPT/HCPCS: 36415; 80053; 81001; 82550; 83605; 83690; 84145; 84484; 85025; 87040; 87086; 96365; 99284; J0696

== ENCOUNTER → 2023-02-04 10:53 | Outpatient (CLI) | payer OTHER, SELFPAY ==
--- NOTE | 2023-02-04 10:54 | DI.CT.S_ITS ---
PROCEDURE: CT KIDNEY URETER BLADDER (KUB) INDICATIONS: History of Kidney stones TECHNIQUE: Axial sections were acquired from the lung bases to the pubic symphysis. Coronal and sagittal reformats were performed. For radiation dose reduction, the following was used: automated exposure control, adjustment of mA and/or kV according to patient size. COMPARISON: None. FINDINGS: Image quality: Excellent. Lung bases: Lung bases are clear. Heart size is normal. Solid organs: Liver: The liver has no mass or intrahepatic biliary ductal dilatation. The portal vein and hepatic veins are patent. Biliary: Status post cholecystectomy. Pancreas: The pancreas has no mass or ductal dilatation. There is no surrounding inflammation. Spleen: Normal size. There are no masses. Adrenals: No hypertrophy or nodules. Kidneys: No obstructive calculus or hydronephrosis. Multiple 2-3 mm nonobstructive calculi are present within the right kidney. No solid mass. No cystic mass. Peritoneum and bowel: Postoperative changes of gastric surgery. The small bowel has a normal caliber and appearance. The terminal ileum is normal. The large bowel has a normal caliber and appearance. The appendix is not definitively visualized and therefore acute appendicitis cannot be excluded; however there are no secondary findings to suggest acute appendicitis. No free fluid or air. Nodes and vessels: No retroperitoneal or mesenteric adenopathy by size criteria. Aorta and inferior vena cava are normal in size. Miscellaneous: No abdominal wall mass or hernia. PELVIS: Genitourinary: The bladder has no wall thickening or mass. No bladder calcifications. Bones: No suspicious bony lesions. No vertebral body compression fractures. IMPRESSION: 1. No obstructive nephroureteral calculi. 2. Nonobstructing calculi in the right kidney. 3. No acute abnormality of the abdomen or pelvis. Dictated by: Aram Herbert M.D. on 02/04/2023 at 10:44 Approved by: Aram Herbert M.D. on 02/04/2023 at 10:49
== END ==
PROVIDERS: PCP Physician Assistant; Referring Provider Specialist; Visit Provider Specialist
DX: Z87.440 Personal history of urinary (tract) infections (principal); Z87.442 Personal history of urinary calculi; N20.0 Calculus of kidney; Z90.49 Acquired absence of other specified parts of digestive tract
CPT/HCPCS: 74176

== ENCOUNTER 2023-06-28 14:15 | Emergency (ER) | payer OTHER, SELFPAY ==
[2023-06-28] VITALS (9 sets, daily range): BP systolic 145–214; BP diastolic 65–96; PULSE 75–88; RESP 14–20; TEMP 36.8; O2SAT 96–100; BMI 44.2
--- NOTE | 2023-06-28 14:25 | DI.CT.S_ITS ---
PROCEDURE: CT STROKE INDICATIONS: left face/arm numbness TECHNIQUE: Noncontrast 4.5 mm thick angled axial sections acquired from the foramen magnum to the vertex, with coronal reformats. For radiation dose reduction, the following was used: automated exposure control, adjustment of mA and/or kV according to patient size. COMPARISON: None. FINDINGS: Image quality: Excellent. CSF spaces: Basal cisterns are patent. No extra-axial fluid collections. Ventricles are normal in size and shape. Brain: No midline shift. No intracranial masses or hemorrhage. Chávez-white matter interface is normal. Skull and face: Calvarium and visualized facial bones are intact, without suspicious lesions. Sinuses: Visualized sinuses and mastoids are clear. IMPRESSION: No acute intracranial abnormalities. No contraindication for IV tPA therapy. Findings were reported to Dr. Meneses in the ER at 2:47 p.m. On 06/28/2023. This study fulfills neurological imaging criteria for inclusion or exclusion of acute stroke therapies based on available published neurological imaging guidelines. Dictated by: Daniel Vizcaino M.D. on 06/28/2023 at 14:46 Approved by: Daniel Vizcaino M.D. on 06/28/2023 at 14:48
--- NOTE | 2023-06-28 14:26 | DI.CT.S_ITS ---
PROCEDURE: CT ANGIO HEAD AND NECK INDICATIONS: left face/arm numbness TECHNIQUE: After the administration of intravenous contrast, 1 mm thick sections acquired from the aortic arch through the [place]. 3-dimensional [id number]-[id number] (MIP) and/or volume rendering reformats were acquired of the central intracranial vasculature and neck separately. For radiation dose reduction, the following was used: automated exposure control, adjustment of mA and/or kV according to patient size. COMPARISON: None. FINDINGS: Image quality: Diagnostic. BRAIN: CSF spaces: Ventricles are normal in size and shape. Basal cisterns are patent. No extra-axial fluid collections. Brain: No significant abnormality of the brain can be seen. Skull and face: Calvarium and facial bones appear intact, without suspicious lesions. Orbits appear normal. Sinuses: Sinuses and mastoids are clear. HEAD CT ANGIOGRAPHY: Anterior circulation: Intracranial internal carotid arteries are normal in size and flow. Diminutive appearance of right A1 segment is noted. The flow within the rest of the paired anterior cerebral arteries is normal and symmetric. The flow within the middle cerebral arteries is normal and symmetric. The anterior communicating artery is seen. No aneurysms are seen. Posterior circulation: Visualized portions of the vertebral arteries demonstrate normal caliber, and join to form a normal appearing basilar artery. Flow within the posterior cerebral arteries is normal and symmetric. No aneurysms are seen. NECK CT ANGIOGRAPHY: Carotid system: The great vessels demonstrate a conventional anatomy as they arise from the aortic arch. The origins of the common carotid arteries appear patent. The common carotid arteries demonstrate normal caliber and courses. The bifurcation regions are both widely patent. The internal carotid arteries demonstrate normal calibers and courses. Posterior circulation: The origins of the vertebral arteries both appear widely patent. The more superior extracranial portions of both vertebral arteries also demonstrate normal courses and calibers. They join to form a normal appearing basilar artery. Soft tissues: Visualized neck soft tissues demonstrate no suspicious abnormalities. Enlarged left thyroid lobe with heterogeneous enhancement is seen suggestive of nodular goiter. Mildly prominent left submandibular lymph node is seen measures 8 mm in size. Bones: No suspicious bony lesions. Visualized cervical spine appears normally aligned. Postfusion changes are noted in lower cervical spine. IMPRESSION: 1. No CT evidence of acute intracranial abnormalities. No area of abnormal intracranial enhancement. 2. Diminutive appearance of right A1 segment which may represent congenitally small A1 segment. Diffuse high-grade stenosis of A1 cannot be excluded. No hemodynamically significant stenosis or aneurysm is seen in rest of the intracranial circulation. 3. No hemodynamically significant stenosis is seen in bilateral neck arteries. 4. Incidentally noted of possible nodular goiter, suggest outpatient ultrasound follow-up. Mildly prominent left submandibular lymph no measures 8 mm in short axis diameter. Any quantitative measurements of stenosis were performed using NASCET criteria. Dictated by: Daniel Vizcaino M.D. on 06/28/2023 at 14:53 Approved by: Daniel Vizcaino M.D. on 06/28/2023 at 14:56
--- NOTE | 2023-06-28 14:30 | ED_ITS ---
HPI - Neuro Symptoms/Deficit General Chief Complaint: Neuro Symptoms/Deficit Stated Complaint: Droopy L/side of face and L/arm numb/ bad headache Time Seen by Provider: 06/28/23 14:25 Source: patient, RN notes reviewed and old records reviewed Mode of arrival: Ambulatory Limitations: no limitations History of Present Illness HPI Narrative: 52-year-old female with history of blood clots on Xarelto, bipolar disorder on lamotrigine, factor 5 Leiden, hypertension, dyslipidemia and prior kidney stones who presents with complaint of facial numbness, droop and left upper extremity weakness and numbness. Patient states symptoms started about 10 30 this morning still present but she states her arm has improved somewhat. Patient states she does have a headache, she states she is had headaches for several months she is on migraine medications. She denies fevers. No acute changes has some mild blurred vision which is persistent. No chest pain, no shortness of breath, no nausea no vomiting, no issues such as diarrhea constipation, no urinary symptoms. She describes numbness and tingling in his on her left side arm and leg. Patient states she of her left upper extremity earlier today has improved but appreciated some decreasing client operations manager on examination. Patient states she is ambulating normally and drove herself to the emergency department. She states has prior laser eye surgery for glaucoma/angle tear, she is had a prior gastric sleeve. Kidney stones. Allergic to amoxicillin and Abilify. No tobacco, alcohol or illicit. Her PCP is Mary Cannon. She sees urology but does not follow regularly with a neurologist. Related Data Home Medications Medication Instructions Recorded Confirmed lamotrigine 100 mg tablet 100 mg PO BID ##0 04/12/17 02/07/23 (Lamictal) cholecalciferol (vitamin D3) 50 50 mcg PO DAILY 08/31/22 02/07/23 mcg (2,000 unit) capsule estradiol 0.01% (0.1 mg/gram) 1 g vaginal 2XW 08/31/22 02/07/23 vaginal cream furosemide 20 mg tablet 20 mg PO DAILY 08/31/22 02/07/23 multivitamin 1 tab PO DAILY 08/31/22 02/07/23 rivaroxaban 2.5 mg tablet (Xarelto) 2.5 mg PO BID 08/31/22 02/07/23 sumatriptan succinate 25 mg tablet 25 mg PO ONCE 08/31/22 02/07/23 bupropion HCl 150 mg 24 hr tablet, 150 mg PO DAILY 09/22/22 02/07/23 extended release (Wellbutrin XL) ascorbic acid (vitamin C) 500 mg mg PO 02/07/23 02/07/23 capsule cranberry 400 mg capsule 400 mg PO DAILY 02/07/23 02/07/23 Allergies Allergy/AdvReac Type Severity Reaction Status Date / Time amoxicillin [AMOXICILLIN] Allergy Severe HIVES Verified 06/28/23 14:33 Sulfa (Sulfonamide Allergy Severe HIVES Verified 06/28/23 14:33 Antibiotics) [SULFA (SULFONAMIDE ANTIBIOTICS)] Review of Systems Review of Systems ROS Unobtainable: All systems reviewed & are unremarkable except as noted in HPI and below Patient History Medical History Postmenopausal atrophic vaginitis History of recurrent UTI (urinary tract infection) Sepsis (12/2021) Disc displacement, lumbar GERD (gastroesophageal reflux disease) Chronic low back pain Migraines IBS (irritable bowel syndrome) HLD (hyperlipidemia) HTN (hypertension) Fibromyositis DVT (deep venous thrombosis) Factor V Leiden Bipolar disorder Diabetes History of nephrolithiasis Calculus of right kidney Gross hematuria Hx of nephrolithotomy with removal of calculi Hx of migraine headaches History of kidney stones History of depression Surgical History 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) Hx of cystoscopy (09/22/22) Hx of laser iridotomy Hx of cervical discectomy (04/13/17) Hx of tonsillectomy History of lumbar fusion (2007) History of hysterectomy (1997) Hx of neck surgery Hx of cystoscopy (12/27/21) Hx of cholecystectomy History of back surgery Family History Mother Cancer Hypertension Migraines Urinary tract infection Kidney stones Brother Cancer Hypertension Inflammatory bowel disease Social History marital status: number of children: 2 household members: spouse Smoking Status: Never smoker alcohol intake: never caffeine: Yes Type(s) of exercise: none Smoking Status: Never smoker alcohol intake frequency: holidays/special occasions only Substance Use Type: does not use Exam Narrative Exam Narrative: GEN: Obese, well appearing female, alert and oriented x 3, patient appears to be in mild distress. HEENT: Atraumatic, pupils are equal round reactive to light, extraocular movements are intact, nares are clear, TMs are clear with no fluid, there is no conjunctival pallor. Throat is clear without any exudates, erythema, tonsillar enlargement or uvular deviation, facial droop. HEART: Regular rate and rhythm without murmur, clicks, rubs. Pulses are equal in upper and lower extremities LUNGS:Lungs clear to auscultation, no wheezes, rales, crackles, chest moves symmetrically ABD:bowel sounds normal, soft, non-tender, no guarding, rebound, rigidity, no masses noted, no hepatosplenomegaly :No CVA tenderness MSCL: Non-tender, no muscle atrophy, muscles strength 5/5 upper and lower extremities, full range of motion, normal gait NEURO:CN 2-12 intact, decreased sensation left upper and lower leg, also decreased on the cheek. Finger nose finger test normal, heel fiore test normal Initial Vital Signs Initial Vital Signs: Vital Signs Temperature 98.3 F 06/28/23 14:15 Pulse Rate 86 06/28/23 14:15 Respiratory Rate 14 06/28/23 14:15 Blood Pressure 214/96 H 06/28/23 14:15 Pulse Oximetry 98 06/28/23 14:15 Oxygen Delivery Method Room Air 06/28/23 14:15 Scores NIH Stroke Scale Level of Conciousness: Alert, keenly responsive Ask month/age: Answers both questions correctly. Open/close eyes, close hand: Performs both tasks correctly Best gaze horizontal: Normal Visual crawford: No visual loss Facial palsy: Minor paralysis, flattened nasolabial fold, asymmetry on smiling Left arm drift: No drift for full 10 sec Right arm drift: No drift for full 10 sec Left leg drift: No drift for full 5 sec Right leg drift: No drift for full 5 sec Limb ataxia: Absent Sensory on face/arms/legs: Mild to moderate sensory loss, can tell touch Best language: No aphasia, normal Dysarthria: Normal Extinction or inattention: No abnormality Total NIH Stroke scale score: 2 Course Orders Ordered: ED Orders 06/28/23 14:25 CT Stroke Stat Complete Blood Count AUTO DIFF Stat Comprehensive Metabolic Panel Stat Ethanol (ETOH) Stat PTT Partial Thromboplastin Mahesh Stat Prothrombin Time INR Stat Troponin & CK Cardiac Panel Stat Urine Drug Screen, Rapid Stat EKG-12 Lead Stat 06/28/23 14:26 CT angio head and neck Stat 06/28/23 14:40 COVID19 -Nasal RAPID Stat 06/28/23 15:18 Lamotrigine Lamictal Stat Discontinued Medications Morphine Sulfate (Morphine 4 Mg/Ml Inj) 4 mg IV NOW ONE Stop: 06/28/23 15:15 Last Admin: 06/28/23 15:42 Dose: Not Given Documented By: SPF Vital Signs Vital signs: Vital Signs - 8 hr 06/28/23 14:15 06/28/23 14:23 06/28/23 14:41 Temperature 98.3 F Pulse Rate 86 86 88 Respiratory Rate 14 Blood Pressure 214/96 H Pulse Oximetry 98 100 100 Oxygen Delivery Method Room Air 06/28/23 14:43 06/28/23 14:43 06/28/23 15:00 Temperature Pulse Rate 86 81 Respiratory Rate 14 Blood Pressure 181/79 H Pulse Oximetry 99 99 Oxygen Delivery Method Room Air 06/28/23 15:01 06/28/23 15:01 06/28/23 15:30 Temperature Pulse Rate 82 76 Respiratory Rate 16 Blood Pressure 196/79 H Pulse Oximetry 99 97 Oxygen Delivery Method Room Air 06/28/23 15:31 06/28/23 15:31 06/28/23 16:00 Temperature Pulse Rate 78 Respiratory Rate 18 Blood Pressure 145/65 H 157/69 H Pulse Oximetry 96 Oxygen Delivery Method Room Air 06/28/23 16:00 Temperature Pulse Rate 75 Respiratory Rate 20 Blood Pressure Pulse Oximetry 98 Oxygen Delivery Method Room Air MDM - Neuro Symptoms/Deficit Lab Data 06/28/23 14:25 06/28/23 14:25 Labs: Lab Results 06/28/23 06/28/23 Range/Units 14:25 14:40 WBC 10.3 (4.5-11.0) X10^3/uL RBC 3.98 L (4.0-5.2) X10^6/uL Hgb 11.5 L (12.0-16.0) g/dL Hct 34.7 L (36-46) % MCV 87.2 (80-100) fL MCH 28.8 (26-34) PG MCHC 33.1 (30-36) % RDW 14.5 (11.6-14.8) % Plt Count 364 (150-400) X10^3/uL Neut % (Auto) 49.5 L (50-75) % Lymph % (Auto) 39.4 (25-40) % [place] % (Auto) 8.2 (3-14) % Eos % (Auto) 1.8 L (2-4) % Baso % (Auto) 1.1 (0-2) % Neut # (Auto) 5100 (6183-1889) /uL Lymph # (Auto) 4100 (2696-9640) /uL [place] # (Auto) 800 (0-900) /uL Eos # (Auto) 200 (0-450) /uL Baso # (Auto) 100 (0-100) /uL PT 14.2 H (9.4-12.5) SECONDS INR 1.2 (0.9-1.3) APTT 30 (25.1-36.5) SECONDS Sodium 141 (137-145) mmol/L Potassium 3.3 L (3.4-5.1) mmol/L Chloride 105 (98-107) mmol/L Carbon Dioxide 26 (22-32) mmol/L BUN 20 H (7-17) mg/dL Creatinine 0.93 (0.52-1.04) mg/dL Estimated GFR > 60 (>60) mL/min BUN/Creatinine Ratio 21.5 (6-22) Glucose 94 (70-100) mg/dL Calcium 10.2 (8.4-10.2) mg/dL Total Bilirubin 0.5 (0.2-1.3) mg/dL AST 26 (14-36) IU/L ALT 17 (<35) IU/L Alkaline Phosphatase 97 (38-126) U/L Total Creatine Kinase 108 (30-135) U/L Troponin I < 0.012 (0.01-0.034) ng/mL Total Protein 8.6 H (6.3-8.2) g/dL Albumin 4.6 (3.5-5.0) g/dL Globulin 4.0 (1.7-4.1) g/dL Albumin/Globulin Ratio 1.2 (1.0-2.8) U Opiates 300ng/mL cut Negative (Negative) Ur Oxycodone Screen Negative (Negative) Urine Methadone Screen Negative (Negative) Ur Barbiturates Screen Negative (Negative) U Tricyclic Antidepress Negative (Negative) Ur Phencyclidine Scrn Negative (Negative) Ur Amphetamines Screen Negative (Negative) U Methamphetamines Scrn Negative (Negative) Ur MDMA Scrn (Ecstasy) Negative (Negative) U Benzodiazepines Scrn Negative (Negative) Urine Cocaine Screen Negative (Negative) U Marijuana (THC) Screen Negative (Negative) Ethyl Alcohol < 10 ( - 10) mg/dL SARS-CoV-2 (PCR) Negative (Negative) Point of Care Testing Glucose POC 88 Urine Dip Bedside Urine Glucose Negative Bedside Urine Bilirubin - Negative Bedside Urine Ketone - Negative Urine Specific [place] 1.020 Bedside Urine Occult Blood - Negative Bedside Urine Protein +/- 15 Bedside Urine Urobilinogen - Negative Bedside Urine Nitrite - Negative Bedside Urine Leukocytes - Negative Esterase Imaging Data CT scan - head: Radiologist's Impression: Close Head/Neck CTA (Signed) Daniel Vizcaino - 06/28/[address] (Signed) Daniel Vizcaino - 06/28/23 Abdomen/Pelvis CT (Signed) Aram Herbert - 02/04/23 KUB X-Ray (Signed) Kishor Garibay - 09/29/22 KUB X-Ray (Signed) You Willoughby - 09/22/22 Abdomen X-Ray (Signed) Elvi Cardona - 09/22/22 [place] [address] CT Scan Report Signed Patient: Olga Lidia Villareal MR#: [id number] : 1970 Acct:[id number] Age/Sex: 53 / F Date of Service: 06/28/23 Loc: ED Accession Number: [id number] Procedure: CT Stroke Ordering Provider: Navya Meneses D.O. PROCEDURE: CT STROKE INDICATIONS: left face/arm numbness TECHNIQUE: Noncontrast 4.5 mm thick angled axial sections acquired from the foramen magnum to the vertex, with coronal reformats. For radiation dose reduction, the following was used: automated exposure control, adjustment of mA and/or kV according to patient size. COMPARISON: None. FINDINGS: Image quality: Excellent. CSF spaces: Basal cisterns are patent. No extra-axial fluid collections. Ventricles are normal in size and shape. Brain: No midline shift. No intracranial masses or hemorrhage. Chávez-white matter interface is normal. Skull and face: Calvarium and visualized facial bones are intact, without suspicious lesions. Sinuses: Visualized sinuses and mastoids are clear. IMPRESSION: No acute intracranial abnormalities. No contraindication for IV tPA therapy. Findings were reported to Dr. Meneses in the ER at 2:47 p.m. On 06/28/2023. This study fulfills neurological imaging criteria for inclusion or exclusion of acute stroke therapies based on available published neurological imaging guidelines. Dictated by: Daniel Vizcaino M.D. on 06/28/2023 at 14:46 Approved by: Daniel Vizcaino M.D. on 06/28/2023 at 14:48 CTA - brain/neck: Radiologist's Impression: Close Head/Neck CTA (Signed) Daniel Vizcaino - 06/28/[address] (Signed) Daniel Vizcaino - 06/28/23 Abdomen/Pelvis CT (Signed) Aram Herbert - 02/04/23 KUB X-Ray (Signed) Kishor Garibay - 09/29/22 KUB X-Ray (Signed) You Willoughby - 09/22/22 Abdomen X-Ray (Signed) Elvi Cardona - 09/22/22 [place] [address] CT Scan Report Signed Patient: Olga Lidia Villareal MR#: [id number] : 1970 Acct:[id number] Age/Sex: 53 / F Date of Service: 06/28/23 Loc: ED Accession Number: [id number] Procedure: CT angio head and neck Ordering Provider: Navya Meneses D.O. PROCEDURE: CT ANGIO HEAD AND NECK INDICATIONS: left face/arm numbness TECHNIQUE: After the administration of intravenous contrast, 1 mm thick sections acquired from the aortic arch through the [place] of [place]. 3-dimensional vifcwdo-jasxpemyt-rpgndloxwn (MIP) and/or volume rendering reformats were acquired of the central intracranial vasculature and neck separately. For radiation dose reduction, the following was used: automated exposure control, adjustment of mA and/or kV according to patient size. COMPARISON: None. FINDINGS: Image quality: Diagnostic. BRAIN: CSF spaces: Ventricles are normal in size and shape. Basal cisterns are patent. No extra-axial fluid collections. Brain: No significant abnormality of the brain can be seen. Skull and face: Calvarium and facial bones appear intact, without suspicious lesions. Orbits appear normal. Sinuses: Sinuses and mastoids are clear. HEAD CT ANGIOGRAPHY: Anterior circulation: Intracranial internal carotid arteries are normal in size and flow. Diminutive appearance of right A1 segment is noted. The flow within the rest of the paired anterior cerebral arteries is normal and symmetric. The flow within the middle cerebral arteries is normal and symmetric. The anterior communicating artery is seen. No aneurysms are seen. Posterior circulation: Visualized portions of the vertebral arteries demonstrate normal caliber, and join to form a normal appearing basilar artery. Flow within the posterior cerebral arteries is normal and symmetric. No aneurysms are seen. NECK CT ANGIOGRAPHY: Carotid system: The great vessels demonstrate a conventional anatomy as they arise from the aortic arch. The origins of the common carotid arteries appear patent. The common carotid arteries demonstrate normal caliber and courses. The bifurcation regions are both widely patent. The internal carotid arteries demonstrate normal calibers and courses. Posterior circulation: The origins of the vertebral arteries both appear widely patent. The more superior extracranial portions of both vertebral arteries also demonstrate normal courses and calibers. They join to form a normal appearing basilar artery. Soft tissues: Visualized neck soft tissues demonstrate no suspicious abnormalities. Enlarged left thyroid lobe with heterogeneous enhancement is seen suggestive of nodular goiter. Mildly prominent left submandibular lymph node is seen measures 8 mm in size. Bones: No suspicious bony lesions. Visualized cervical spine appears normally aligned. Postfusion changes are noted in lower cervical spine. IMPRESSION: 1. No CT evidence of acute intracranial abnormalities. No area of abnormal intracranial enhancement. 2. Diminutive appearance of right A1 segment which may represent congenitally small A1 segment. Diffuse high-grade stenosis of A1 cannot be excluded. No hemodynamically significant stenosis or aneurysm is seen in rest of the intracranial circulation. 3. No hemodynamically significant stenosis is seen in bilateral neck arteries. 4. Incidentally noted of possible nodular goiter, suggest outpatient ultrasound follow-up. Mildly prominent left submandibular lymph no measures 8 mm in short axis diameter. Any quantitative measurements of stenosis were performed using NASCET criteria. Dictated by: Daniel Vizcaino M.D. on 06/28/2023 at 14:53 Approved by: Daniel Vizcaino M.D. on 06/28/2023 at 14:56 ECG Data Attestation: I personally reviewed and interpreted this ECG as follows: Prior ECG tracings: not available for review Interpretation: Sinus rhythm rate of 77 AR 196 QRS 80 QTC [address]. No acute ST elevation depression noted. No prior for comparison. MDM Narrative Medical decision making narrative: 53-year-old female history of factor 5 Leiden on Xarelto daily and prior blood clots as well as lamotrigine for mood disorder presents with complaint of left- sided numbness weakness and face upper extremity leg starting about 10 or 10 30 this morning. She states her left upper extremity was quite weak it is much improved she had some change with client operations manager on exam but at this time is mostly sensation changes with some mild droop. Initial head CT is negative CT angio shows diminutive appearance of right a 1 segment flow with the rest of the anterior cerebral arteries normal symmetric. No hemodynamically significant stenosis bilateral neck arteries incidentally possible nodular goiter suggest outpatient ultrasound follow up mildly prominent left side min tubular lymph node 8 mm. CBC shows hemoglobin 11.5 consistent with priors platelets 364 normal white count, neutrophils are low. Coags negative, potassium 3.3 sodium is 141 BUN 20 with normal renal function, CMP, negative troponin. U tox and EtOH or negative. COVID is negative. Discussed with Neurology, stroke Dr. Gómez, reviewed patient images. No tpa candidate based on time and xarelto use. Admitted for MR and workup. Hold Xarelto take it MR. Patient has small infarct. Discussed with patient she is quite claustrophobic we do not have an open MR but discussed we can keep for additional workup. She is not agreeable for observation overnight for echo, monitoring. We discussed medications for sedation for our MRI which isn't closed here. She states she would not be able to tolerate that. Discussed risks versus benefits and discuss if she does have a stroke while she is on Xarelto she is really not appropriately covered were protected. And has potential for rapidly worsening symptoms. Patient expresses her understanding and states she will call her primary care tomorrow to follow up with MR, echo and further workup. She states there is 1 in [place] that she has used before. Discharge Plan Departure Patient Disposition: Left Against Medical Advice Clinical Impression: Acute CVA (cerebrovascular accident) Instructions: DI for Stroke-Ischemic Activity Restrictions/Additional Instructions: It is recommended that you stay overnight for further workup for potential stroke. You have stroke-like symptoms today, so recommended you have an MRI if not at our facility at another. It is also recommended that you stay overnight to have an echo or ultrasound of your heart and continued monitoring. If you did have a stroke while on Xarelto this means you are not properly protected or anticoagulated I would have risk for rapidly worsening stroke or becoming a bleed. Please follow-up with your physician. Call their office tomorrow to see if they can help set up for MRI, echo and telemetry monitoring or Holter or ZIO patch. Please return for new or worsening symptoms, increasing or severe headaches, new chest pain, shortness of breath, increasing wheezing numbness, tingling or weakness, persistent vomiting, loss of bowel or bladder control or other new or concerning changes. Prescriptions: No Action lamotrigine [Lamictal] 100 MG tablet 100 mg PO BID Qty: 0 bupropion HCl [Wellbutrin XL] 150 mg Tablet Extended Release 24 Hr 150 mg PO DAILY furosemide 20 mg tablet 20 mg PO DAILY sumatriptan succinate 25 mg tablet 25 mg PO ONCE cholecalciferol (vitamin D3) 50 mcg (2,000 unit) capsule 50 mcg PO DAILY estradiol 0.01 % (0.1 mg/gram) cream 1 g vaginal 2XW Xarelto 2.5 mg tablet 2.5 mg PO BID multivitamin Tablet 1 tab PO DAILY ascorbic acid (vitamin C) 500 mg capsule PO cranberry 400 mg capsule 400 mg PO DAILY Rx Instructions: administer with a meal Referrals: Mary Cannon PA-C [Primary Care Provider] - Stand Alone Forms: Patient Portal/API, Against Medical Advice
[2023-06-28 14:41] LABS: INR 1.2 (0.9-1.3); Prothrombin Time 14.2 SECONDS (9.4-12.5)
[2023-06-28 14:44] LABS: PTT Partial Thromboplastin Tim 30 SECONDS (25.1-36.5)
[2023-06-28 14:51] LABS: Alanine Aminotransferase 17 IU/L (<35); Albumin 4.6 g/dL (3.5-5.0); Albumin Globulin Ratio 1.2 (1.0-2.8); Alkaline Phosphatase 97 U/L (38-126); Aspartate Aminotransferase 26 IU/L (14-36); BUN Creatinine Ratio 21.5 (6-22); Bilirubin Total 0.5 mg/dL (0.2-1.3); Blood Urea Nitrogen 20 mg/dL (7-17); Calcium 10.2 mg/dL (8.4-10.2); Carbon Dioxide 26 mmol/L (22-32); Chloride 105 mmol/L (98-107); Creatine Kinase 108 U/L (30-135); Estimated Glomerular Filt Rate > 60 mL/min (>60); Ethanol (ETOH) < 10 mg/dL; Glucose 94 mg/dL (70-100); HEMOLYSIS < 15 (0-50); Potassium 3.3 mmol/L (3.4-5.1); Sodium 141 mmol/L (137-145); Total Protein 8.6 g/dL (6.3-8.2)
[2023-06-28 14:57] LABS: Add Manual Diff / Slide Review NO; Basophils Absolute Auto 100 /uL (0-100); Basophils Percent Auto 1.1 % (0-2); Eosinophils Absolute Auto 200 /uL (0-450); Eosinophils Percent Auto 1.8 % (2-4); Hematocrit 34.7 % (36-46); Hemoglobin 11.5 g/dL (12.0-16.0); Lymphocytes Absolute Auto 4100 /uL (1100-4500); Lymphocytes Percent Auto 39.4 % (25-40); Mean Corpuscular HGB Conc 33.1 % (30-36); Mean Corpuscular Hemoglobin 28.8 PG (26-34); Mean Corpuscular Volume 87.2 fL (80-100); Monocytes Absolute Auto 800 /uL (0-900); Monocytes Percent Auto 8.2 % (3-14); Neutrophils Absolute Auto 5100 /uL (1500-7000); Neutrophils Percent Auto 49.5 % (50-75); Platelet Count 364 X10^3/uL (150-400); Red Blood Cell Count 3.98 X10^6/uL (4.0-5.2); Red Cell Distribution Width 14.5 % (11.6-14.8); White Blood Cell Count 10.3 X10^3/uL (4.5-11.0)
[2023-06-28 14:59] LABS: COVID19 -Nasal RAPID Negative (Negative)
[2023-06-28 15:02] LABS: Troponin I < 0.012 ng/mL (0.01-0.034)
[2023-06-28 15:08] LABS: UR Morphine/Opiate cutoff 300 Negative (Negative); Ur Creatinine Normal (Normal); Ur Specific Gravity Normal (Normal); Urine Amphetamines Negative (Negative); Urine Barbiturates Negative (Negative); Urine Benzodiazepines Negative (Negative); Urine Cocaine Negative (Negative); Urine MDMA Negative (Negative); Urine Methadone Negative (Negative); Urine Methamphetamines Negative (Negative); Urine Oxycodone Negative (Negative); Urine Phencyclidine Negative (Negative); Urine Tetrahydrocannabinol Negative (Negative); Urine Tricyclic Antidepressant Negative (Negative); Urine pH Normal (Normal)
--- NOTE | 2023-06-28 15:11 | PC.NURSE ---
Pt unable to tell that I was touching her left leg and arm while her eyes were closed. Pt able to walk to the bathroom and back to bed, but feels less sensation on her left cheek. Pt also states feels like she has to put in more effort to squeeze my hand with her left hand.
[2023-07-04 13:38] LABS: Lamotrigine Lamictal <1.0 ug/mL (2.0-20.0)
== END 2023-06-28 16:15 | disposition left against medical advice (07) ==
PROVIDERS: Emergency Provider Emergency Medicine; PCP Physician Assistant
DX: I63.9 Cerebral infarction, unspecified (principal); R29.702 NIHSS score 2; Z53.29 Procedure and treatment not carried out because of patient's decision for other reasons; Z11.52 Encounter for screening for COVID-19
CPT/HCPCS: 36415; 70450; 70496; 70498; 80053; 80175; 80305; 80320; 81003; 82550; 82962; 84484; 85025; 85610; 85730; 87635; 93005; 93010; 99284; 99285; C9803

== ENCOUNTER → 2024-08-05 09:46 | Outpatient (CLI) | payer OTHER, SELFPAY ==
[2024-08-05 10:49] LABS: Add Manual Diff / Slide Review NO; Basophils Absolute Auto 100 /uL (0-100); Basophils Percent Auto 0.8 % (0-2); Eosinophils Absolute Auto 100 /uL (0-450); Eosinophils Percent Auto 1.9 % (2-4); Hematocrit 33.4 % (36-46); Hemoglobin 10.8 g/dL (12.0-16.0); Lymphocytes Absolute Auto 2300 /uL (1100-4500); Lymphocytes Percent Auto 30.3 % (25-40); Mean Corpuscular HGB Conc 32.5 % (30-36); Mean Corpuscular Hemoglobin 27.9 PG (26-34); Mean Corpuscular Volume 85.8 fL (80-100); Monocytes Absolute Auto 400 /uL (0-900); Neutrophils Absolute Auto 4500 /uL (1500-7000); Platelet Count 393 X10^3/uL (150-400); Red Blood Cell Count 3.89 X10^6/uL (4.0-5.2); White Blood Cell Count 7.4 X10^3/uL (4.5-11.0)
[2024-08-05 11:16] LABS: Alanine Aminotransferase 49 IU/L (<35); Albumin 3.9 g/dL (3.5-5.0); Albumin Globulin Ratio 1.2 (1.0-2.8); Alkaline Phosphatase 238 U/L (38-126); Aspartate Aminotransferase 45 IU/L (14-36); BUN Creatinine Ratio 16.3 (6-22); Bilirubin Total 0.3 mg/dL (0.2-1.3); Blood Urea Nitrogen 14 mg/dL (7-17); Calcium 9.2 mg/dL (8.4-10.2); Carbon Dioxide 24 mmol/L (22-32); Chloride 108 mmol/L (98-107); Cholesterol 98 mg/dL (140-199); Estimated Glomerular Filt Rate > 60 mL/min (>60); Globulin 3.3 g/dL (1.7-4.1); Glucose 101 mg/dL (70-100); HDL Cholesterol 38 mg/dL (40-60); HEMOLYSIS < 15 (0-50); LDL Cholesterol Calculated 36 mg/dL (<100); Potassium 2.8 mmol/L (3.4-5.1); Sodium 141 mmol/L (137-145); Total Protein 7.2 g/dL (6.3-8.2); Triglycerides 121 mg/dL (35-150)
[2024-08-05 11:18] LABS: Hemoglobin A1C% w Est Avg Glu 5.2 % (4.0-6.0)
[2024-08-05 11:49] LABS: Thyroid Stimulating Hormone 0.404 uIU/mL (0.47-4.68)
== END ==
LOC: LAB 09:47
PROVIDERS: PCP Student in an Organized Health Care Education/Training Program; Referring Provider Student in an Organized Health Care Education/Training Program; Visit Provider Student in an Organized Health Care Education/Training Program
DX: E66.9 Obesity, unspecified (principal); Z86.73 Personal history of transient ischemic attack (TIA), and cerebral infarction without residual deficits
CPT/HCPCS: 36415; 80053; 80061; 83036; 84443; 85025

== ENCOUNTER 2024-08-05 16:43 | Emergency (ER) | payer OTHER, SELFPAY ==
[2024-08-05] VITALS (11 sets, daily range): BP systolic 142–186; BP diastolic 67–99; PULSE 66–84; RESP 16–51; TEMP 36.7; O2SAT 96–100; BMI 43.0
--- NOTE | 2024-08-05 17:17 | EKG_ITS ---
[address] [address] Test Date: 2024-08-05 Pat Name: Olga Lidia Villareal Department: Room: Gender: Female Business Enterprise Officer: CASSANDRA : 1970 Requested By: Order Number: [id number] Reading MD: Les Gauthier Measurements Intervals [place] Rate: 72 P: 56 [place]: 186 QRS: 13 QRSD: 84 T: 18 QT: 410 QTc: 448 Interpretive Statements Normal sinus rhythm Inferior infarct , age undetermined Cannot rule out Anterior infarct , age undetermined Electronically Signed On 08-07-2024 18:32:23 PST by Les Gauthier
[2024-08-05] MEDS: POTASSIUM CHLORIDE 20 MEQ TAB 40 MEQ PO (18:08)
[2024-08-05 18:12] LABS: BUN Creatinine Ratio 15.5 (6-22); Blood Urea Nitrogen 15 mg/dL (7-17); Calcium 9.2 mg/dL (8.4-10.2); Carbon Dioxide 25 mmol/L (22-32); Chloride 106 mmol/L (98-107); Estimated Glomerular Filt Rate > 60 mL/min (>60); Glucose 94 mg/dL (70-100); HEMOLYSIS 22 (0-50); Potassium 2.9 mmol/L (3.4-5.1); Sodium 141 mmol/L (137-145)
--- NOTE | 2024-08-05 18:39 | ED.RECABL ---
HPI - Recheck/Abnormal Lab/Rx General Chief Complaint: Recheck/Abnormal Lab/Rx Stated Complaint: states needs potassium shot Time Seen by Provider: 08/05/24 17:08 Source: patient, RN notes reviewed and old records reviewed Mode of arrival: Ambulatory Limitations: no limitations History of Present Illness HPI narrative: 2-year-old female history of blood clots on Xarelto, bipolar disorder on lamotrigine, factor 5 Leiden, hypertension, dyslipidemia, prior kidney stones presents with reported outpatient labs that show low potassium. Patient takes Lasix has had past she does not take supplementation Lasix difficulty. Patient states she has had issues in the past with low potassium. She does not take any supplementation but has used Gatorade in the past which has been helpful. She denies any other concerns or symptoms currently. Related Data Home Medications Medication Instructions Recorded Confirmed lamotrigine 100 mg tablet 100 mg PO BID ##0 04/12/17 08/01/24 (Lamictal) cholecalciferol (vitamin D3) 50 50 mcg PO DAILY 08/31/22 08/01/24 mcg (2,000 unit) capsule estradiol 0.01% (0.1 mg/gram) 1 g vaginal 2XW 08/31/22 08/01/24 vaginal cream furosemide 20 mg tablet 20 mg PO DAILY 08/31/22 08/01/24 multivitamin 1 tab PO DAILY 08/31/22 08/01/24 rivaroxaban 2.5 mg tablet (Xarelto) 2.5 mg PO BID 08/31/22 08/01/24 sumatriptan succinate 25 mg tablet 25 mg PO ONCE 08/31/22 08/01/24 bupropion HCl 150 mg 24 hr tablet, 150 mg PO DAILY 09/22/22 08/01/24 extended release (Wellbutrin XL) ascorbic acid (vitamin C) 500 mg mg PO 02/07/23 08/01/24 capsule cranberry 400 mg capsule 400 mg PO DAILY 02/07/23 08/01/24 tirzepatide (weight loss) 5 mg/0.5 5 mg SUBCUT QWEEK 08/01/24 08/01/24 mL subcutaneous pen injector (Zepbound) Previous Rx's Medication Instructions Recorded betamethasone valerate 0.1 % 1 applic topical BID PRN rash #45 08/05/24 topical cream grams potassium chloride 20 mEq 20 meq PO DAILY #5 tabs 08/05/24 tablet,extended release Allergies Allergy/AdvReac Type Severity Reaction Status Date / Time amoxicillin [AMOXICILLIN] Allergy Severe HIVES Verified 08/05/24 17:24 Sulfa (Sulfonamide Allergy Severe HIVES Verified 08/05/24 17:24 Antibiotics) [SULFA (SULFONAMIDE ANTIBIOTICS)] Review of Systems Review of Systems ROS Unobtainable: All systems reviewed & are unremarkable except as noted in HPI and below Patient History Medical History Postmenopausal atrophic vaginitis History of recurrent UTI (urinary tract infection) Sepsis (12/2021) Disc displacement, lumbar GERD (gastroesophageal reflux disease) Chronic low back pain Migraines IBS (irritable bowel syndrome) HLD (hyperlipidemia) HTN (hypertension) Fibromyositis DVT (deep venous thrombosis) Factor V Leiden Bipolar disorder Diabetes History of nephrolithiasis Calculus of right kidney Gross hematuria Hx of nephrolithotomy with removal of calculi Hx of migraine headaches History of kidney stones History of depression Surgical History 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) Hx of cystoscopy (09/22/22) Hx of laser iridotomy Hx of cervical discectomy (04/13/17) Hx of tonsillectomy History of lumbar fusion (2007) History of hysterectomy (1997) Hx of neck surgery Hx of cystoscopy (12/27/21) Hx of cholecystectomy History of back surgery Family History Mother Cancer Hypertension Migraines Urinary tract infection Kidney stones Brother Cancer Hypertension Inflammatory bowel disease Social History marital status: number of children: 2 household members: spouse Smoking Status: Never smoker alcohol intake: never caffeine: Yes Type(s) of exercise: none Smoking Status: Never smoker alcohol intake frequency: holidays/special occasions only Exam Narrative Exam Narrative: GENERAL: Alert and oriented x three, well-appearing female in no acute distress HEENT: Head normocephalic, atraumatic, EOMI, pupils reactive, face symmetric, moist mucous membranes NECK: Supple, full range of motion CARDIOVASCULAR: Regular rate and rhythm without murmurs, rubs or gallops. RESPIRATORY: Breath sounds equal bilaterally, no wheezes rales or rhonchi. ABDOMEN: Soft, nontender. Normoactive bowel sounds all 4 quadrants. No guarding or rebound, rigidity, no mass : No CVA tenderness EXTREMITIES: Normal range of motion. Neurovascularly intact NEUROLOGICAL: Cranial nerves II through XII grossly intact. Moving all extremities SKIN: Warm, dry, no petechiae, no rashes or lesions. Initial Vital Signs Initial Vital Signs: Vital Signs Temperature 98.1 F 08/05/24 16:45 Pulse Rate 84 08/05/24 16:45 Respiratory Rate 17 08/05/24 16:45 Blood Pressure 173/95 H 08/05/24 16:45 Pulse Oximetry 98 08/05/24 16:45 Oxygen Delivery Method Room Air 08/05/24 16:45 Course Orders Ordered: Discontinued Medications Potassium Chloride (Potassium Chloride 20 Meq Tab) 40 meq PO NOW ONE Stop: 08/05/24 17:09 Last Admin: 08/05/24 18:08 Dose: 40 meq Documented By: LITZY Vital Signs Vital signs: Vital Signs - 8 hr 08/05/24 16:45 08/05/24 16:51 08/05/24 16:52 Temperature 98.1 F Pulse Rate 84 84 Respiratory Rate 17 51 H Blood Pressure 173/95 H Pulse Oximetry 98 99 99 Oxygen Delivery Method Room Air 08/05/24 16:52 08/05/24 17:01 08/05/24 17:07 Temperature Pulse Rate 83 75 Respiratory Rate 20 Blood Pressure 180/99 H Pulse Oximetry 99 99 Oxygen Delivery Method 08/05/24 17:07 08/05/24 17:30 08/05/24 17:31 Temperature Pulse Rate 71 72 Respiratory Rate 17 33 H Blood Pressure 146/67 H Pulse Oximetry 96 96 Oxygen Delivery Method 08/05/24 17:31 08/05/24 18:07 08/05/24 18:08 Temperature Pulse Rate 66 69 Respiratory Rate 29 H 16 Blood Pressure 186/83 H Pulse Oximetry 99 100 Oxygen Delivery Method 08/05/24 18:08 08/05/24 18:30 08/05/24 18:31 Temperature Pulse Rate 69 68 Respiratory Rate 26 H 26 H Blood Pressure 160/69 H Pulse Oximetry 99 98 Oxygen Delivery Method 08/05/24 18:31 Temperature Pulse Rate Respiratory Rate Blood Pressure 142/68 H Pulse Oximetry Oxygen Delivery Method MDM - Recheck/Abnormal Lab/Rx Lab Data 08/05/24 17:55 Labs: Lab Results 08/05/24 Range/Units 17:55 Sodium 141 (137-145) mmol/L Potassium 2.9 L (3.4-5.1) mmol/L Chloride 106 (98-107) mmol/L Carbon Dioxide 25 (22-32) mmol/L BUN 15 (7-17) mg/dL Creatinine 0.97 (0.52-1.04) mg/dL Estimated GFR > 60 (>60) mL/min BUN/Creatinine Ratio 15.5 (6-22) Glucose 94 (70-100) mg/dL Calcium 9.2 (8.4-10.2) mg/dL [facility] Narrative Medical decision making narrative: 54-year-old female sent by primary care office for low potassium, patient takes Lasix does not take any potassium supplementation has been reportedly low in the past. BNP earlier today had a potassium of 2.8 on rechecked here this evening sodium of 141 potassium 2.9 chloride of 106 CO2 of 25 BUN 15 creatinine 0.97. Patient received 40 mEq of potassium. We will give an additional dose here in the department and recommended to follow up and talk with her physician about whether did not have regular sudden mentation with her Lasix. Discharge Plan Departure Patient Disposition: Home Clinical Impression: Hypokalemia Instructions: DI for Hypokalemia Activity Restrictions/Additional Instructions: Follow up with your physician for recheck and a half your labs rechecked as well. Your furosemide likely causing your low potassium. You have been given a prescription to take an additional potassium supplementation for several days. Take 1 tablet daily with your furosemide. Please pick this up tomorrow. Prescription was sent to [facility] in [place]. Please return if you have any new symptoms, palpitations, chest pain, shortness of breath, new swelling of your extremities lightheadedness or passing or other new or concerning changes. Prescriptions: New potassium chloride 20 mEq tablet extended release 20 meq PO DAILY Qty: 5 0RF No Action Zepbound 5 mg/0.5 mL pen injector 5 mg SUBCUT QWEEK lamotrigine [Lamictal] 100 MG tablet 100 mg PO BID Qty: 0 betamethasone valerate 0.1 % cream 1 applic topical BID PRN (Reason: rash) Qty: 45 3RF bupropion HCl [Wellbutrin XL] 150 mg Tablet Extended Release 24 Hr 150 mg PO DAILY furosemide 20 mg tablet 20 mg PO DAILY sumatriptan succinate 25 mg tablet 25 mg PO ONCE cholecalciferol (vitamin D3) 50 mcg (2,000 unit) capsule 50 mcg PO DAILY estradiol 0.01 % (0.1 mg/gram) cream 1 g vaginal 2XW Xarelto 2.5 mg tablet 2.5 mg PO BID multivitamin Tablet 1 tab PO DAILY ascorbic acid (vitamin C) 500 mg capsule PO cranberry 400 mg capsule 400 mg PO DAILY Rx Instructions: administer with a meal Referrals: Beth Cho MD [Primary Care Provider] - Stand Alone Forms: Patient Portal/API/Survey
== END 2024-08-05 19:05 | disposition home or self-care (01) ==
PROVIDERS: Emergency Medicine; Emergency Provider Emergency Medicine; PCP Student in an Organized Health Care Education/Training Program
DX: E87.6 Hypokalemia (principal); Z79.899 Other long term (current) drug therapy; Z86.718 Personal history of other venous thrombosis and embolism; Z79.01 Long term (current) use of anticoagulants; E66.9 Obesity, unspecified; Z86.73 Personal history of transient ischemic attack (TIA), and cerebral infarction without residual deficits
CPT/HCPCS: 36415; 80048; 80053; 80061; 83036; 84443; 85025; 93005; 99284

== ENCOUNTER → 2024-08-12 07:51 | Outpatient (CLI) | payer OTHER, SELFPAY ==
[2024-08-12 08:49] LABS: BUN Creatinine Ratio 17.3 (6-22); Blood Urea Nitrogen 13 mg/dL (7-17); Calcium 9.6 mg/dL (8.4-10.2); Carbon Dioxide 24 mmol/L (22-32); Chloride 109 mmol/L (98-107); Estimated Glomerular Filt Rate > 60 mL/min (>60); Glucose 98 mg/dL (70-100); HEMOLYSIS < 15 (0-50); Potassium 3.7 mmol/L (3.4-5.1); Sodium 140 mmol/L (137-145)
== END ==
PROVIDERS: PCP Student in an Organized Health Care Education/Training Program; Referring Provider Student in an Organized Health Care Education/Training Program; Visit Provider Student in an Organized Health Care Education/Training Program
DX: E87.6 Hypokalemia (principal)
CPT/HCPCS: 36415; 80048

== ENCOUNTER → 2024-10-16 09:52 | Outpatient (CLI) | payer OTHER, SELFPAY ==
[2024-10-16 11:04] LABS: Alanine Aminotransferase 20 IU/L (<35); Albumin 3.6 g/dL (3.5-5.0); Albumin Globulin Ratio 1.3 (1.0-2.8); Alkaline Phosphatase 97 U/L (38-126); Aspartate Aminotransferase 40 IU/L (14-36); BUN Creatinine Ratio 14.3 (6-22); Bilirubin Total 0.5 mg/dL (0.2-1.3); Blood Urea Nitrogen 14 mg/dL (7-17); Calcium 9.3 mg/dL (8.4-10.2); Carbon Dioxide 28 mmol/L (22-32); Chloride 101 mmol/L (98-107); Estimated Glomerular Filt Rate > 60 mL/min (>60); Globulin 2.8 g/dL (1.7-4.1); Glucose 95 mg/dL (70-100); HEMOLYSIS < 15 (0-50); Sodium 139 mmol/L (137-145); Total Protein 6.4 g/dL (6.3-8.2)
[2024-10-16 11:48] LABS: Potassium 2.7 mmol/L (3.4-5.1)
== END ==
LOC: LAB 09:53
PROVIDERS: PCP Student in an Organized Health Care Education/Training Program; Referring Provider Student in an Organized Health Care Education/Training Program; Visit Provider Student in an Organized Health Care Education/Training Program
DX: R79.89 Other specified abnormal findings of blood chemistry (principal)
CPT/HCPCS: 36415; 80053

== ENCOUNTER → 2024-12-25 15:16 | Outpatient (CLI) | payer OTHER, SELFPAY ==
[2024-12-25 16:00] LABS: Add Manual Diff / Slide Review NO; Basophils Absolute Auto 100 /uL (0-100); Basophils Percent Auto 0.8 % (0-2); Eosinophils Absolute Auto 100 /uL (0-450); Hematocrit 41.3 % (36-46); Hemoglobin 13.8 g/dL (12.0-16.0); Lymphocytes Absolute Auto 3100 /uL (1100-4500); Lymphocytes Percent Auto 31.2 % (25-40); Mean Corpuscular HGB Conc 33.4 % (30-36); Mean Corpuscular Hemoglobin 30.8 PG (26-34); Mean Corpuscular Volume 92.1 fL (80-100); Monocytes Absolute Auto 800 /uL (0-900); Monocytes Percent Auto 7.9 % (3-14); Neutrophils Absolute Auto 5800 /uL (1500-7000); Neutrophils Percent Auto 59.1 % (50-75); Platelet Count 389 X10^3/uL (150-400); Red Blood Cell Count 4.49 X10^6/uL (4.0-5.2); Red Cell Distribution Width 16.1 % (11.6-14.8); White Blood Cell Count 9.8 X10^3/uL (4.5-11.0)
[2024-12-25 16:15] LABS: Alanine Aminotransferase 23 IU/L (<35); Albumin 3.6 g/dL (3.5-5.0); Albumin Globulin Ratio 1.2 (1.0-2.8); Alkaline Phosphatase 145 U/L (38-126); Aspartate Aminotransferase 54 IU/L (14-36); BUN Creatinine Ratio 13.7 (6-22); Bilirubin Total 0.9 mg/dL (0.2-1.3); Blood Urea Nitrogen 19 mg/dL (7-17); Carbon Dioxide 35 mmol/L (22-32); Chloride 84 mmol/L (98-107); Estimated Glomerular Filt Rate 45 mL/min (>60); Glucose 108 mg/dL (70-99); HEMOLYSIS < 15 (0-50); Sodium 132 mmol/L (137-145); Total Protein 6.6 g/dL (6.3-8.2)
[2024-12-25 16:33] LABS: Potassium 2.3 mmol/L (3.4-5.1)
[2024-12-25 16:48] LABS: Thyroid Stimulating Hormone 1.49 uIU/mL (0.47-4.68)
[2024-12-25 17:25] LABS: Folate 14.7 ng/mL (2.76-20.0); Vitamin B12 939 pg/mL (239-931)
== END ==
PROVIDERS: PCP Student in an Organized Health Care Education/Training Program; Referring Provider Student in an Organized Health Care Education/Training Program; Visit Provider Student in an Organized Health Care Education/Training Program
DX: R42 Dizziness and giddiness (principal)
CPT/HCPCS: 36415; 80053; 82607; 82746; 84443; 85025

== ENCOUNTER 2024-12-25 17:56 | Emergency (ER) | payer OTHER, SELFPAY ==
[2024-12-25] VITALS (13 sets, daily range): BP systolic 100–137; BP diastolic 58–86; PULSE 75–89; RESP 12–27; TEMP 36.6; O2SAT 94–98; BMI 31.7
--- NOTE | 2024-12-25 18:30 | DI.CT.S_ITS ---
PROCEDURE: CT KIDNEY URETER BLADDER (KUB) INDICATIONS: weakness, low K, royer TECHNIQUE: After the administration of oral contrast, 5 mm thick sections acquired from the diaphragms to the symphysis. 5 mm coronal and sagittal reformats were performed. For radiation dose reduction, the following was used: automated exposure control, adjustment of mA and/or kV according to patient size. COMPARISON: [facility], CT, CT KIDNEY URETER BLADDER (KUB), 02/04/2023, 11:07. FINDINGS: Image quality: Diagnostic. Lower Chest: No significant findings. ABDOMEN: Liver: No contour-deforming mass. Heterogeneous attenuation, likely due to steatosis. Gallbladder: Absent. Biliary ducts: No biliary dilation. Pancreas: No ductal dilation. Spleen: Size is within normal limits. Adrenal Glands: No adrenal nodules. Kidneys and Ureters: No hydronephrosis. No contour-deforming mass. lobulation. A couple of punctate, nonobstructing right-sided nephrolithiasis. Stomach and Bowel: Normal colonic caliber, without significant wall thickening. Normal appendix. Peritoneum: No abnormal intraperitoneal fluid. No free air. Ventral Wall: No significant hernia. Abdominal Nodes: No retroperitoneal or mesenteric adenopathy by size criteria. Vessels: Aorta and inferior vena cava are normal in size. PELVIS: Pelvic Organs: Unremarkable. Bladder: Unremarkable. Pelvic Nodes: No enlarged lymph nodes. Miscellaneous: No inguinal hernias are seen. Bones: No aggressive osseous abnormality. Grade 1 anterolisthesis of L4 on L5. Lumbarization S1 with surgical fusion of S1-S2. IMPRESSION: No acute abnormality. A couple of punctate, nonobstructing right-sided nephrolithiasis without hydronephrosis. Dictated by: Faisal Pozo M.D. on 12/25/2024 at 19:22 Approved by: Faisal Pozo M.D. on 12/25/2024 at 19:24
--- NOTE | 2024-12-25 18:50 | EKG_ITS ---
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
[2024-12-25 19:12] LABS: Add Manual Diff / Slide Review NO; Basophils Absolute Auto 100 /uL (0-100); Basophils Percent Auto 1.1 % (0-2); Eosinophils Absolute Auto 100 /uL (0-450); Eosinophils Percent Auto 1.1 % (2-4); Hematocrit 37.7 % (36-46); Hemoglobin 13.1 g/dL (12.0-16.0); Lymphocytes Absolute Auto 3400 /uL (1100-4500); Lymphocytes Percent Auto 31.9 % (25-40); Mean Corpuscular HGB Conc 34.7 % (30-36); Mean Corpuscular Hemoglobin 31.9 PG (26-34); Mean Corpuscular Volume 91.9 fL (80-100); Monocytes Absolute Auto 1300 /uL (0-900); Monocytes Percent Auto 12.6 % (3-14); Neutrophils Absolute Auto 5600 /uL (1500-7000); Neutrophils Percent Auto 53.3 % (50-75); Platelet Count 344 X10^3/uL (150-400); Red Cell Distribution Width 15.9 % (11.6-14.8); White Blood Cell Count 10.6 X10^3/uL (4.5-11.0)
[2024-12-25 19:20] LABS: Alanine Aminotransferase 23 IU/L (<35); Albumin 3.5 g/dL (3.5-5.0); Albumin Globulin Ratio 1.1 (1.0-2.8); Alkaline Phosphatase 131 U/L (38-126); Aspartate Aminotransferase 66 IU/L (14-36); BUN Creatinine Ratio 13.6 (6-22); Bilirubin Total 0.8 mg/dL (0.2-1.3); Blood Urea Nitrogen 19 mg/dL (7-17); Calcium 8.4 mg/dL (8.4-10.2); Carbon Dioxide 33 mmol/L (22-32); Chloride 87 mmol/L (98-107); Estimated Glomerular Filt Rate 44 mL/min (>60); Globulin 3.1 g/dL (1.7-4.1); Glucose 104 mg/dL (70-99); HEMOLYSIS 23 (0-50); Sodium 130 mmol/L (137-145); Total Protein 6.6 g/dL (6.3-8.2)
[2024-12-25 19:28] LABS: Potassium 2.1 mmol/L (3.4-5.1)
[2024-12-25] MEDS: POTASSIUM CHLORIDE IN WATER 10 MEQ/100 ML PIGGYBACK 100 MEQ IV ×4 (19:47→23:47)
[2024-12-25] MEDS: POTASSIUM CHLORIDE 20 MEQ TAB 40 MEQ PO (19:47)
[2024-12-25] MEDS: SODIUM CHLORIDE 0.9% 1,000 ML 150 ML IV (19:47)
[2024-12-25 20:23] LABS: Magnesium 1.4 mg/dL (1.6-2.3)
[2024-12-25] MEDS: MAGNESIUM SULFATE 2 GM/50 ML PIGGYBACK IV ×2 (22:11→23:54)
--- NOTE | 2024-12-25 23:11 | ED_ITS ---
HPI - Weakness General Chief complaint: Weakness Stated complaint: PCP ref, Low potassium Time Seen by Provider: 12/25/24 18:30 Source: patient and family Mode of arrival: Ambulatory Limitations: no limitations History of Present Illness HPI Narrative: 54-year-old female history of CVA/blood clots on Xarelto, bipolar disorder on lamotrigine, factor 5 Leiden, hypertension, dyslipidemia sent for hypokalemia from outpatient labs. Patient notes she has been on Zepbound (Wegovy) since June has had significant weight loss has lost about 60 lb in the past 2 months went from 265 originally he was currently 173 lb. Patient states over the past week she was felt increasingly lightheaded and weak and tired. She was able to ambulate but has to stop and take periods of rest. Denies any chest pain, no shortness of breath, no syncope she was had nausea but no vomiting. She was tried some occasional mild diarrhea but no significant or frequent amounts. She denies any numbness tingling or other changes. She notes she had some hypokalemia earlier this year and was started on oral potassium that she was continuing with her Lasix which she has been taking since 2008. She has not had any other medication changes she does take Xarelto daily, lamotrigine twice daily, Wellbutrin in the morning along with her Lasix, atorvastatin and potassium supplement. In the evening she takes her lamotrigine, Xarelto and migraine medication. She was describes allergies to amoxicillin and sulfa. No tobacco, alcohol or recreational drugs. Dr. Alejandro speaks her primary care physician who she was saw earlier today and had ordered outpatient labs. Related Data Home Medications Medication Instructions Recorded Confirmed cholecalciferol (vitamin D3) 50 50 mcg PO DAILY 08/31/22 12/25/24 mcg (2,000 unit) capsule estradiol 0.01% (0.1 mg/gram) 1 g vaginal 2XW 08/31/22 12/25/24 vaginal cream furosemide 20 mg tablet 20 mg PO DAILY 08/31/22 12/25/24 multivitamin 1 tab PO DAILY 08/31/22 12/25/24 rivaroxaban 2.5 mg tablet (Xarelto) 2.5 mg PO BID 08/31/22 12/25/24 sumatriptan succinate 25 mg tablet 25 mg PO ONCE 08/31/22 12/25/24 bupropion HCl 150 mg 24 hr tablet, 150 mg PO DAILY 09/22/22 12/25/24 extended release (Wellbutrin XL) ascorbic acid (vitamin C) 500 mg mg PO 02/07/23 12/25/24 capsule cranberry fruit 400 mg capsule 400 mg PO DAILY 02/07/23 12/25/24 Previous Rx's Medication Instructions Recorded betamethasone valerate 0.1 % 1 applic topical BID PRN rash #45 09/04/24 topical cream grams tirzepatide (weight loss) 5 mg/0.5 5 mg (0.5 mL) SUBCUT QWEEK #6 mL 11/27/24 mL subcutaneous pen injector ([email or web address]) esomeprazole magnesium 40 mg 40 mg PO DAILY #90 caps 12/09/24 capsule,delayed release potassium chloride 20 mEq 20 meq PO DAILY #30 tabs 12/22/24 tablet,extended release ondansetron 8 mg disintegrating 8 mg PO Q12H PRN nausea and 12/25/24 tablet vomiting #60 tabs Allergies Allergy/AdvReac Type Severity Reaction Status Date / Time amoxicillin [AMOXICILLIN] Allergy Severe HIVES Verified 12/25/24 15:02 Sulfa (Sulfonamide Allergy Severe HIVES Verified 12/25/24 15:02 Antibiotics) [SULFA (SULFONAMIDE ANTIBIOTICS)] Review of Systems Review of Systems ROS Unobtainable: All systems reviewed & are unremarkable except as noted in HPI and below Patient History Medical History Obesity, Class III, BMI 40-49.9 (morbid obesity) Eczema Depression Anxiety Chronic back pain Cellulitis Glaucoma Stroke (~2023) Pituitary adenoma Postmenopausal atrophic vaginitis History of recurrent UTI (urinary tract infection) Sepsis (12/2021) Disc displacement, lumbar GERD (gastroesophageal reflux disease) Chronic low back pain Migraines IBS (irritable bowel syndrome) HLD (hyperlipidemia) HTN (hypertension) Fibromyositis DVT (deep venous thrombosis) Factor V Leiden Bipolar disorder Diabetes History of nephrolithiasis Calculus of right kidney Gross hematuria Hx of migraine headaches History of kidney stones History of depression Surgical History Anesthesia Pacemaker (~10/2023) Hx of nephrolithotomy with removal of calculi 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) Hx of cystoscopy (09/22/22) Hx of laser iridotomy Hx of cervical discectomy (04/13/17) Hx of tonsillectomy History of lumbar fusion (2007) History of hysterectomy (1997) Hx of neck surgery Hx of cystoscopy (12/27/21) Hx of cholecystectomy History of back surgery Family History Mother Cancer Hypertension Migraines Urinary tract infection Kidney stones Osteoporosis Brother Cancer Hypertension Inflammatory bowel disease Father Alzheimer's dementia Social History marital status: number of children: 2 household members: spouse alcohol intake: never caffeine: Yes Type(s) of exercise: none alcohol intake frequency: holidays/special occasions only Exam Narrative Exam Narrative: GENERAL: Alert and oriented x three, mild distress. HEENT: Head normocephalic, atraumatic, EOMI, pupils reactive, face symmetric, moist mucous membranes NECK: Supple, full range of motion CARDIOVASCULAR: Regular rate and rhythm without murmurs, rubs or gallops. RESPIRATORY: Breath sounds equal bilaterally, no wheezes rales or rhonchi. ABDOMEN: Soft, nontender. Normoactive bowel sounds all 4 quadrants. No guarding or rebound, rigidity, no mass : No CVA tenderness EXTREMITIES: Normal range of motion, no clubbing or edema. Neurovascularly intact NEUROLOGICAL: Cranial nerves II through XII grossly intact. Moving all extremities SKIN: Warm, dry, no petechiae, no rashes or lesions. Initial Vital Signs Initial Vital Signs: Vital Signs Temperature 97.9 F 12/25/24 18:07 Pulse Rate 89 12/25/24 18:07 Respiratory Rate 14 12/25/24 18:07 Blood Pressure 137/72 12/25/24 18:07 Pulse Oximetry 98 12/25/24 18:07 Oxygen Delivery Method Room Air 12/25/24 18:07 Course Orders Ordered: ED Orders 12/25/24 18:30 CT kidney ureter bladder (KUB) Stat 12/25/24 18:57 CMP [Comprehensive Metabolic Panel] Stat Complete Blood Count AUTO DIFF Stat MAG [Magnesium] Stat 12/25/24 18:58 EKG-12 Lead Stat Sodium Chloride (Normal Saline 0.9%) 1,000 mls @ 150 mls/hr IV CONT SREEKANTH Last Admin: 12/25/24 19:47 Dose: 150 mls/hr Documented By: XIAO Discontinued Medications POTASSIUM CHLORIDE IN WATER (Potassium Cl 10 Meq/100 Ml Kalli) 10 meq in 100 mls @ 100 mls/hr IV Q1H [facility] Stop: 12/25/24 22:29 Last Admin: 12/25/24 22:16 Dose: 100 mls/hr Documented By: Infusion: 12/25/24 22:08 Dose: Infused Documented By: Admin: 12/25/24 21:08 Dose: 100 mls/hr Documented By: Infusion: 12/25/24 21:07 Dose: Infused Documented By: Admin: 12/25/24 19:47 Dose: 100 mls/hr Documented By: XIAO Magnesium Sulfate (Magnesium Sulfate) 2 gm in 50 mls @ 150 mls/hr IV NOW ONE Stop: 12/25/24 22:15 Last Infusion: 12/25/24 22:53 Dose: Infused Documented By: XIAO Co-signed By: ALEJANDRA Admin: 12/25/24 22:11 Dose: 150 mls/hr Documented By: XIAO Co-signed By: ALEJANDRA Magnesium Sulfate (Magnesium Sulfate) 2 gm in 50 mls @ 150 mls/hr IV NOW ONE Stop: 12/25/24 23:33 POTASSIUM CHLORIDE IN WATER (Potassium Cl 10 Meq/100 Ml Kalli) 10 meq in 100 mls @ 100 mls/hr IV Q1H [facility] Stop: 12/26/24 01:44 Last Admin: 12/25/24 23:51 Dose: Not Given Potassium Chloride (Potassium Chloride 20 Meq Tab) 40 meq PO NOW ONE Stop: 12/25/24 18:31 Last Admin: 12/25/24 19:47 Dose: 40 meq Documented By: XIAO Vital Signs Vital signs: Vital Signs - 8 hr 12/25/24 18:07 Temperature 97.9 F Pulse Rate 89 Respiratory Rate 14 Blood Pressure 137/72 Pulse Oximetry 98 Oxygen Delivery Method Room Air MDM - Weakness Lab Data 12/25/24 18:57 12/25/24 18:57 Labs: Lab Results 12/25/24 Range/Units 18:57 WBC 10.6 (4.5-11.0) X10^3/uL RBC 4.10 (4.0-5.2) X10^6/uL Hgb 13.1 (12.0-16.0) g/dL Hct 37.7 (36-46) % MCV 91.9 (80-100) fL MCH 31.9 (26-34) PG MCHC 34.7 (30-36) % RDW 15.9 H (11.6-14.8) % Plt Count 344 (150-400) X10^3/uL Neut % (Auto) 53.3 (50-75) % Lymph % (Auto) 31.9 (25-40) % Keith % (Auto) 12.6 (3-14) % Eos % (Auto) 1.1 L (2-4) % Baso % (Auto) 1.1 (0-2) % Neut # (Auto) 5600 (0911-2499) /uL Lymph # (Auto) 3400 (2293-5921) /uL Keith # (Auto) 1300 H (0-900) /uL Eos # (Auto) 100 (0-450) /uL Baso # (Auto) 100 (0-100) /uL Sodium 130 L (137-145) mmol/L Potassium 2.1 L* (3.4-5.1) mmol/L Chloride 87 L (98-107) mmol/L Carbon Dioxide 33 H (22-32) mmol/L BUN 19 H (7-17) mg/dL Creatinine 1.40 H (0.52-1.04) mg/dL Estimated GFR 44 L (>60) mL/min BUN/Creatinine Ratio 13.6 (6-22) Glucose 104 H (70-99) mg/dL Calcium 8.4 (8.4-10.2) mg/dL Magnesium 1.4 L (1.6-2.3) mg/dL Total Bilirubin 0.8 (0.2-1.3) mg/dL AST 66 H (14-36) IU/L ALT 23 (<35) IU/L Alkaline Phosphatase 131 H (38-126) U/L Total Protein 6.6 (6.3-8.2) g/dL Albumin 3.5 (3.5-5.0) g/dL Globulin 3.1 (1.7-4.1) g/dL Albumin/Globulin Ratio 1.1 (1.0-2.8) ECG Data Attestation: I personally reviewed and interpreted this ECG as follows: Prior ECG tracings: available for review Interpretation: Sinus rhythm with sinus arrhythmia rate 80 IA 172 QRS 86 QTC of 334. No acute ST elevation, T-wave inversion lateral leads. Patient was prior from 08/05/2024 changes in lateral leads to appear different patient does not have any ST elevation. [facility] Narrative Medical decision making narrative: EKG shows sinus rhythm with sinus arrhythmia T-wave inversions lateral leads change from prior in July of 2024. CBC shows normal white count hemoglobin and platelets, patient's sodium is 130 was 130 to in the 139 in October, potassium is slowly trending down words was 2.7 in October is 2.1 today with a chloride of 87, CO2 of 33 BUN 19 creatinine 1.40 was normal in 0.98 in October. Patient's glucose is 104 Mag slightly low at 1.4, AST 66, bilirubin is 0.8 ALT is 23 with a alk-phos of 131. Patient had CT KUB no acute abnormality a couple of punctate nonobstructing right-sided nephrolithiasis without never hydronephrosis. Patient received oral and IV potassium, IV magnesium and gentle fluids. 54-year-old female I presents with a increased weakness, dizziness, nausea generally feeling unwell he was found to have appears to be in JEY, hyponatremia, hypokalemia as well as hypomagnesemia. Patient was on Lasix she was also on was at bound she maybe contributing she is taking an oral potassium supplement currently. Patient did have some mild EKG changes. Spoke with Dr. Gomes, tele hospitalist with plan for observation telemetry. Reviewed findings from today. Discharge Plan Departure Patient Disposition: Admitted as Observation Clinical Impression: Hyponatremia, Hypomagnesemia, Hypokalemia, JEY (acute kidney injury)
[2024-12-26] VITALS: BP 116/59; PULSE 75; RESP 39; O2SAT 98
[2024-12-26 00:30] VITALS: BP 105/59; PULSE 75; RESP 27; O2SAT 92
[2024-12-26 01:00] VITALS: BP 99/54; PULSE 74; RESP 18; O2SAT 96
[2024-12-26 01:27] VITALS: BP 109/62; PULSE 76; RESP 39; O2SAT 97
[2024-12-26 01:30] VITALS: PULSE 80; RESP 52; O2SAT 98
== END 2024-12-26 01:39 | disposition left against medical advice (07) ==
LOC: ED 12-26 00:09 → AC 12-26 00:27
PROVIDERS: Emergency Provider Emergency Medicine; PCP Student in an Organized Health Care Education/Training Program; Referring Provider Emergency Medicine
DX: E87.1 Hypo-osmolality and hyponatremia (principal); E83.42 Hypomagnesemia; E87.6 Hypokalemia; N17.9 Acute kidney failure, unspecified; R42 Dizziness and giddiness; I49.9 Cardiac arrhythmia, unspecified; I10 Essential (primary) hypertension; D68.51 Activated protein C resistance; Z79.01 Long term (current) use of anticoagulants; Z86.73 Personal history of transient ischemic attack (TIA), and cerebral infarction without residual deficits; Z86.718 Personal history of other venous thrombosis and embolism; Z53.29 Procedure and treatment not carried out because of patient's decision for other reasons
CPT/HCPCS: 36415; 74176; 80053; 82607; 82746; 83735; 84443; 85025; 93005; 96365; 96366; 96368; 96376; 99284; J3475

== ENCOUNTER → 2024-12-27 09:20 | Outpatient (CLI) | payer OTHER, SELFPAY ==
[2024-12-27 10:40] LABS: Chloride 89 mmol/L (98-107)
[2024-12-27 11:11] LABS: BUN Creatinine Ratio 13.7 (6-22); Blood Urea Nitrogen 18 mg/dL (7-17); Calcium 8.5 mg/dL (8.4-10.2); Carbon Dioxide 32 mmol/L (22-32); Estimated Glomerular Filt Rate 48 mL/min (>60); Glucose 108 mg/dL (70-99); HEMOLYSIS 25 (0-50); Potassium 2.9 mmol/L (3.4-5.1); Sodium 132 mmol/L (137-145)
== END ==
PROVIDERS: PCP Student in an Organized Health Care Education/Training Program; Referring Provider Student in an Organized Health Care Education/Training Program; Visit Provider Student in an Organized Health Care Education/Training Program
DX: N17.9 Acute kidney failure, unspecified (principal)
CPT/HCPCS: 36415; 80048

== ENCOUNTER → 2024-12-30 12:32 | Outpatient (CLI) | payer OTHER, SELFPAY ==
[2024-12-30 13:11] LABS: BUN Creatinine Ratio 13.4 (6-22); Blood Urea Nitrogen 19 mg/dL (7-17); Carbon Dioxide 28 mmol/L (22-32); Chloride 97 mmol/L (98-107); Estimated Glomerular Filt Rate 44 mL/min (>60); Glucose 117 mg/dL (70-99); HEMOLYSIS 18 (0-50); Potassium 3.5 mmol/L (3.4-5.1); Sodium 135 mmol/L (137-145)
== END ==
PROVIDERS: PCP Student in an Organized Health Care Education/Training Program; Referring Provider Student in an Organized Health Care Education/Training Program; Visit Provider Student in an Organized Health Care Education/Training Program
DX: E87.6 Hypokalemia (principal); E83.42 Hypomagnesemia
CPT/HCPCS: 36415; 80048

== ENCOUNTER → 2025-01-06 08:40 | Outpatient (CLI) | payer OTHER, SELFPAY ==
[2025-01-06 10:31] LABS: BUN Creatinine Ratio 12.7 (6-22); Blood Urea Nitrogen 15 mg/dL (7-17); Carbon Dioxide 25 mmol/L (22-32); Chloride 104 mmol/L (98-107); Estimated Glomerular Filt Rate 55 mL/min (>60); Glucose 78 mg/dL (70-99); HEMOLYSIS < 15 (0-50); Potassium 4.6 mmol/L (3.4-5.1); Sodium 136 mmol/L (137-145)
== END ==
PROVIDERS: PCP Student in an Organized Health Care Education/Training Program; Referring Provider Student in an Organized Health Care Education/Training Program; Visit Provider Student in an Organized Health Care Education/Training Program
DX: E87.1 Hypo-osmolality and hyponatremia (principal); R94.8 Abnormal results of function studies of other organs and systems; Z79.899 Other long term (current) drug therapy
CPT/HCPCS: 36415; 80048

== ENCOUNTER → 2025-01-16 10:02 | Outpatient (CLI) | payer OTHER, SELFPAY ==
[2025-01-16 10:46] LABS: Hematocrit 32.7 % (36-46); Hemoglobin 10.9 g/dL (12.0-16.0); Mean Corpuscular HGB Conc 33.5 % (30-36); Mean Corpuscular Hemoglobin 32.2 PG (26-34); Mean Corpuscular Volume 96.2 fL (80-100); Platelet Count 309 X10^3/uL (150-400); Red Cell Distribution Width 16.2 % (11.6-14.8); White Blood Cell Count 6.4 X10^3/uL (4.5-11.0)
[2025-01-16 11:08] LABS: HEMOLYSIS < 15 (0-50); Iron 72 ug/dL (37-170)
[2025-01-16 11:13] LABS: Blood Urea Nitrogen 12 mg/dL (7-17); Calcium 8.8 mg/dL (8.4-10.2); Carbon Dioxide 25 mmol/L (22-32); Chloride 107 mmol/L (98-107); Estimated Glomerular Filt Rate > 60 mL/min (>60); Glucose 85 mg/dL (70-99); HEMOLYSIS < 15 (0-50); Sodium 138 mmol/L (137-145)
[2025-01-16 11:20] LABS: Percent Iron Saturation 35 % (15-50); Total Iron Binding Capacity 206 ug/dL (265-497); Transferrin 158 mg/dL (206-381)
[2025-01-16 11:45] LABS: Ferritin 78 ng/mL (11-264)
[2025-01-16 13:12] LABS: Neutrophils Absolute Manual 3136 /uL (3000-5900); RBC Morphology Normal Morphology; Total Cells Counted 100
== END ==
PROVIDERS: PCP Student in an Organized Health Care Education/Training Program; Referring Provider Student in an Organized Health Care Education/Training Program; Visit Provider Student in an Organized Health Care Education/Training Program
DX: R23.3 Spontaneous ecchymoses (principal); I95.9 Hypotension, unspecified
CPT/HCPCS: 36415; 80048; 82728; 83540; 83550; 85025

== ENCOUNTER → 2025-02-23 11:02 | Outpatient (CLI) | payer OTHER, SELFPAY ==
[2025-02-23 11:52] LABS: Blood Urea Nitrogen 18 mg/dL (7-17); Calcium 9.1 mg/dL (8.4-10.2); Carbon Dioxide 26 mmol/L (22-32); Chloride 104 mmol/L (98-107); Estimated Glomerular Filt Rate 59 mL/min (>60); Glucose 89 mg/dL (70-99); HEMOLYSIS < 15 (0-50); Potassium 3.9 mmol/L (3.4-5.1); Sodium 138 mmol/L (137-145)
== END ==
PROVIDERS: PCP Student in an Organized Health Care Education/Training Program; Referring Provider Student in an Organized Health Care Education/Training Program; Visit Provider Student in an Organized Health Care Education/Training Program
DX: R79.89 Other specified abnormal findings of blood chemistry (principal)
CPT/HCPCS: 36415; 80048

== ENCOUNTER → 2025-04-01 10:07 | Outpatient (CLI) | payer OTHER, SELFPAY | LOC: WC 10:08 | PROVIDERS: Family Provider Student in an Organized Health Care Education/Training Program; PCP Student in an Organized Health Care Education/Training Program; Referring Provider Student in an Organized Health Care Education/Training Program; Visit Provider Surgery | DX: I87.2 Venous insufficiency (chronic) (peripheral) (principal); L97.821 Non-pressure chronic ulcer of other part of left lower leg limited to breakdown of skin; L81.8 Other specified disorders of pigmentation; I10 Essential (primary) hypertension; R60.0 Localized edema; E11.59 Type 2 diabetes mellitus with other circulatory complications; E11.628 Type 2 diabetes mellitus with other skin complications; Z86.718 Personal history of other venous thrombosis and embolism; E66.9 Obesity, unspecified; Z68.29 Body mass index [BMI] 29.0-29.9, adult; D68.51 Activated protein C resistance; Z79.01 Long term (current) use of anticoagulants; Z88.1 Allergy status to other antibiotic agents | CPT/HCPCS: 99203; 99213 ==

== ENCOUNTER → 2025-04-10 10:14 | Outpatient (CLI) | payer OTHER, SELFPAY | LOC: WC 10:15 | PROVIDERS: Family Provider Student in an Organized Health Care Education/Training Program; PCP Student in an Organized Health Care Education/Training Program; Referring Provider Student in an Organized Health Care Education/Training Program; Visit Provider Physician Assistant | DX: I87.2 Venous insufficiency (chronic) (peripheral) (principal); E11.628 Type 2 diabetes mellitus with other skin complications; L98.9 Disorder of the skin and subcutaneous tissue, unspecified; E66.9 Obesity, unspecified; Z68.29 Body mass index [BMI] 29.0-29.9, adult; I10 Essential (primary) hypertension; Z86.718 Personal history of other venous thrombosis and embolism; Z79.01 Long term (current) use of anticoagulants; D68.61 Antiphospholipid syndrome | CPT/HCPCS: 99212 ==

== ENCOUNTER → 2025-05-11 08:00 | Outpatient (CLI) | payer OTHER, SELFPAY ==
--- NOTE | 2025-05-11 08:01 | DI.MG.S_ITS ---
MM screening mammo BI: 05/11/2025. BI-RADS: 1 CLINICAL: 55-year old female for bilateral screening mammogram. Tyrer-Cuzick lifetime risk of 5.6%. No personal or first-degree family history of breast cancer. Current reported family history of breast cancer: maternal grandmother. PRIOR EXAMS 08/31/2022, 09/08/2020, 02/24/2019, 01/24/2017. MAMMOGRAPHY TECHNIQUE: 2D and 3D (tomosynthesis) digital mammographic views obtained, with additional images as needed for full coverage. Current study was also evaluated with a Computer Aided Detection (CAD) system. DENSITY B. There are scattered areas of fibroglandular density. MAMMOGRAPHY FINDINGS Left: An implanted medical secretary obscures a portion of the breast/axilla. Bilateral: No suspicious mass, asymmetry, microcalcification, or other abnormality seen. IMPRESSION: * No evidence of malignancy. RECOMMENDATIONS Bilateral * Annual screening mammography. OVERALL ASSESSMENT CATEGORY BI-RADS-1: Negative. The [employer] recommends annual screening mammography beginning at age 40 for women with average risk of breast cancer. ELECTRONICALLY SIGNED: Brittany Roper M.D. on 05/11/2025 at 12:19:03 PM PT Interpreting Station ID: [id number]
--- NOTE | 2025-05-11 08:02 | DI.ECHO.S_ITS ---
[facility]+ [facility] : : [address] : : [place] : : [id number] : : Phone: [phone] Echocardiogram Report + + :Name: CRYSTAL MORTENSEN Study Date: 05/11/2025 Height: 61 in : :Hospital ReadingLocation: Weight: 160 lb : : Gender: Female BSA: 1.7 m2 : :: 1970 Age: 55 yrs BP: 125/78 mmHg: :Reason For Study: PALPITATIONS : :Ordering Physician: Lico ALEXANDERformed By: Vanna Nixon : :Referring: MIKA ALEXANDER : + + Interpretation Summary 1) Normal left ventricular thickness, size, wall motion, and systolic function (EF 55-60%). 2) Normal right ventricular size and function. 3) No significant valvular abnormalities. 4) Compared to the Echo done 07/20/2023, no significant change. Procedure: A two-dimensional transthoracic echocardiogram with color flow and Doppler was performed. The study quality was technically adequate. Comparison is made with the echocardiogram of 07/20/2023. The patient was in sinus bradycardia with heart rates between 57-61 bpm during the exam. Left Ventricle: The left ventricle is normal in size and wall thickness. The ejection fraction is estimated to be 55-60%. Left ventricular systolic function appears normal without focal wall motion abnormalities. Normal diastolic function. Right Ventricle: The right ventricle is normal in size and function. Atria: The left atrium is mildly dilated. Right atrial size is normal. There is no Doppler evidence for an interatrial shunt. Mitral Valve: The mitral valve leaflets appear borderline thickened. There is mild mitral regurgitation. Aortic Valve: The aortic valve is trileaflet. The aortic valve opens well. There is no aortic valve stenosis. There is trace aortic regurgitation. Tricuspid Valve: The tricuspid valve leaflets are thin and pliable. There is mild tricuspid regurgitation. Pulmonary artery pressures cannot be estimated because of the lack of a measurable TR jet velocity but the IVC suggests a CVP of around 3 mmHg. Pulmonic Valve: The pulmonic valve is not well seen, but is grossly normal. There is mild pulmonic regurgitation. Great Vessels: The aortic root is normal size. The dimensions of the ascending aorta are normal. The IVC is of normal diameter and collapses greater than 50% with a sniff. This suggests a low right atrial pressure of 3 mm Hg. Pericardium/ Pleura There is no pericardial effusion. There is no pleural effusion. MMode/2D Measurements & Calculations LVIDd: 4.8 cm LVOT diam: 2.2 cm LVIDs: 3.5 cm Ao root diam: 2.6 cm FS: 27.4 % asc Aorta Diam: 3.2 cm EPSS: 0.65 cm Ao Arch Diam (Prox Trans): 2.4 cm IVSd: 0.62 cm LVPWd: 0.66 cm LV paige. diameter/BSA (cm/m^2): 2.8 LV sys. diameter/BSA (cm/m^2): 2.0 LA A2 area: 21.0 cm2 RA long axis: 5.2 cm LA A4 area: 23.1 cm2 RA area: 19.1 cm2 LA length (vol): 5.7 cm RA vol: 59.4 ml LA vol: 72.0 ml RA : 34.6 ml/m2 LA vol index: 41.9 ml/m2 IVC diam: 1.9 cm RVD1 (basal): 4.0 cm RVD2 (mid): 3.0 cm TAPSE: 2.8 cm Doppler Measurements & Calculations Ao V2 max: 155.1 cm/sec LVOT Max Nacho: 96.6 cm/sec Ao V2 mean: 105.8 cm/sec LV V1 max P.7 mmHg Ao max P.7 mmHg LV V1 VTI: 23.8 cm Ao mean P.0 mmHg FELIX(I,D): 2.3 cm2 Ao V2 VTI: 37.1 cm FELIX(V,D): 2.3 cm2 sev ratio: 0.64 FELIX indexed to BSA (cm^2/m^2): 1.4 MV E max nacho: 83.3 cm/sec PA V2 max: 92.1 cm/sec MV A max nacho: 89.4 cm/sec PA V2 mean: 63.3 cm/sec MV E/A: 0.93 PA mean P.8 mmHg Med Peak E' Nacho: 9.2 cm/sec PA pr(Accel): 34.5 mmHg E/E' med: 9.1 Lat Peak E' Nacho: 14.9 cm/sec E/E' lat: 5.6 E/e' average: 7.3 MV dec time: 0.22 sec SV(LVOT): 86.5 ml Reading Physician:10:46 AM
== END ==
PROVIDERS: Family Provider Student in an Organized Health Care Education/Training Program; PCP Student in an Organized Health Care Education/Training Program; Referring Provider Student in an Organized Health Care Education/Training Program; Visit Provider Internal Medicine Cardiovascular Disease
DX: Z12.31 Encounter for screening mammogram for malignant neoplasm of breast (principal); Z80.3 Family history of malignant neoplasm of breast; I08.1 Rheumatic disorders of both mitral and tricuspid valves; R00.2 Palpitations; R94.31 Abnormal electrocardiogram [ECG] [EKG]
CPT/HCPCS: 77063; 77067; 93306

== ENCOUNTER → 2025-05-19 11:46 | Outpatient (CLI) | payer OTHER, SELFPAY ==
[2025-05-19 13:14] LABS: Add Manual Diff / Slide Review NO; Hematocrit 32.3 % (36-46); Hemoglobin 10.8 g/dL (12.0-16.0); Lymphocytes Absolute Auto 3100 /uL (1100-4500); Mean Corpuscular HGB Conc 33.4 % (30-36); Mean Corpuscular Hemoglobin 31.4 PG (26-34); Mean Corpuscular Volume 94.2 fL (80-100); Platelet Count 255 X10^3/uL (150-400)
[2025-05-19 13:40] LABS: Alanine Aminotransferase 54 IU/L (<35); Albumin 4.1 g/dL (3.5-5.0); Albumin Globulin Ratio 1.4 (1.0-2.8); Alkaline Phosphatase 119 U/L (38-126); Blood Urea Nitrogen 21 mg/dL (7-17); Calcium 9.6 mg/dL (8.4-10.2); Carbon Dioxide 22 mmol/L (22-32); Chloride 108 mmol/L (98-107); Estimated Glomerular Filt Rate 49 mL/min (>60); Globulin 3.0 g/dL (1.7-4.1); Glucose 89 mg/dL (70-99); HEMOLYSIS 46 (0-50); Potassium 3.9 mmol/L (3.4-5.1); Sodium 142 mmol/L (137-145); Total Protein 7.1 g/dL (6.3-8.2)
[2025-05-19 13:45] LABS: Hemoglobin A1C% w Est Avg Glu 5.0 % (4.0-6.0)
== END ==
PROVIDERS: Family Provider Student in an Organized Health Care Education/Training Program; PCP Student in an Organized Health Care Education/Training Program; Referring Provider Student in an Organized Health Care Education/Training Program; Visit Provider Student in an Organized Health Care Education/Training Program
DX: D64.9 Anemia, unspecified (principal); E87.6 Hypokalemia
CPT/HCPCS: 36415; 80053; 83036; 85025